=== PATIENT | male | born 1945 | race Caucasian/White ===

== ENCOUNTER → 2017-11-30 | Outpatient (CLI) | payer MEDICARE, OTHER ==
[~2017-11-30] MED LIST: ASPIR 8181 M1 PO; COLACE100 MG PO; COUMADIN 5 MG TA5 M1 PO; ENOXAPARIN40 MG/0.1 SUBQ; ENOXAPARIN80 MG/0.1 SUBQ; FLOMAX0.4 MG PO; FOLIC ACID1 MG PO; GABAPENTIN 100100 MG PO; IRON325 PO; KEFLEX500 MG PO; MACROBID 100 M100 M2 PO; MACRODANTIN100 MG PO; METHOTREXATE 22.5 MG; METHOTREXATE 22.5 MG SUBQ; METHOTREXATE SUBQ; MILK OF MA2400 MG/10 PO; MIRALAX17 GM PO; OXYCODONE HCL 55 MG PO; OXYCODONE HCL5 M1 PO; PREDNISONE 10 M10 MG PO; PROSCAR 5MG TABL5 MG PO; TRAMADOL 50 MG50 MG PO; VITAMINC500 PO; XANAX 0.5 MG0.5 MG PO; XARELTO10 MG PO
== END ==
LOC: M.MRI 15:21
DX: M48.061 Spinal stenosis, lumbar region without neurogenic claudication (principal); M54.16 Radiculopathy, lumbar region; M51.27 Other intervertebral disc displacement, lumbosacral region; M47.896 Other spondylosis, lumbar region; N32.89 Other specified disorders of bladder; N40.1 Benign prostatic hyperplasia with lower urinary tract symptoms

== ENCOUNTER → 2018-01-05 | Outpatient (CLI) | payer MEDICARE, OTHER | LOC: M.RAD 12:58 | DX: R09.89 Other specified symptoms and signs involving the circulatory and respiratory systems (principal); N40.0 Benign prostatic hyperplasia without lower urinary tract symptoms ==

== ENCOUNTER → 2018-04-13 | Outpatient (CLI) | payer MEDICARE, OTHER | LOC: M.MRI 13:41 | DX: M48.02 Spinal stenosis, cervical region (principal); M50.323 Other cervical disc degeneration at C6-C7 level; M12.88 Other specific arthropathies, not elsewhere classified, other specified site; M25.78 Osteophyte, vertebrae; G95.9 Disease of spinal cord, unspecified ==

== ENCOUNTER → 2019-01-02 | Outpatient (CLI) | payer MEDICARE, OTHER | LOC: M.RAD 10:14 | DX: R05 Cough (principal); R07.9 Chest pain, unspecified ==

== ENCOUNTER 2019-01-25 18:25 | Inpatient (IN) | payer MEDICARE, OTHER ==
[~2019-01-25] VITALS: Ht 177.8 cm; Wt 81.6 kg
[~2019-01-25 18:25] MED LIST changes: -XARELTO15 MG PO
[2019-01-25 18:32] VITALS: BP 136/67
[2019-01-25] MEDS ORDERED: PROSCAR 5MG TABL5 MG PO (18:38)
[2019-01-25 19:07] LABS: ABSOLUTE BASOPHILS 0.2 thou/uL (0.0-0.2); ABSOLUTE EOSINOPHILS 0.2 thou/uL (0.0-0.7); ABSOLUTE LYMPHOCYTES 2.2 thou/uL (0.8-5.3); ABSOLUTE MONOCYTES 0.5 thou/uL (0.0-1.2); ABSOLUTE NEUTROPHILS 4.6 thou/uL (1.6-8.1); EOSINOPHILS 2.6 %; HEMATOCRIT 39.7 % (42.0-52.0); HEMOGLOBIN 13.2 gm/dL (14.0-18.0); LYMPHOCYTES 28.6 %; MCH 33.5 pg (26.0-34.0); MCHC 33.4 g/dL (28.0-37.0); MCV 100.5 fL (80.0-100.0); MONOCYTES 6.3 %; MPV 8.4 fl. (7.2-11.1); NUCLEATED RBCS 0 /100WBC; PLATELET COUNT* 267 thou/uL (150-400); POLYS 60.5 %; RBC 3.95 mil/uL (4.50-6.00); RDW-CV 14.3 % (10.5-14.5); WBC 7.7 thou/uL (4.0-11.0)
[2019-01-25 19:12] LABS: PROTIME 10.4 Seconds (9.20-11.50)
[2019-01-25 19:29] LABS: ALBUMIN 3.6 g/dL (3.4-5.0); CALCIUM 8.7 mg/dL (8.5-10.1); CREATININE 1.4 mg/dL (0.6-1.3); POTASSIUM 4.2 mmol/L (3.5-5.1); TOTAL BILIRUBIN 0.5 mg/dL (<0.1-1.0)
[2019-01-25 22:44] VITALS: BP 149/77
[2019-01-25 22:45] VITALS: BP 134/71
--- NOTE | 2019-01-25 22:45 | NUR ---
PT ADMITTED TO FLOOR PER CART ACCOMPANIED BY ER STAFF AND WITH BELONGINGS. ORIENTED TO ROOM AND CALL LITE. HISTORY OBTAINED AND ASSESSMENT PERFORMED, SEE ADMIT NOTED. PT DENIES PAIN OR PROBLEMS. MORE CROSS. AT BEDSIDE, STAYING THE NIGHT. ABLE TO USE CALL LITE AND MAKE NEEDS KNOWN. WILL CONTINUE TO MONITOR AND PROVIDE CARES NEEDED.
[2019-01-26 03:53] VITALS: BP 121/65
--- NOTE | 2019-01-26 05:47 | NUR ---
NEW ADMISSION THIS SHIFT. HAS DENIED PAIN OR PROBLEMS. SLEPT WELL WITH AT BEDSIDE. UP TO BR TO VOID OVERNIGHT. MORE CROSS. ABLE TO USE CALL LITE AND MAKE NEEDS KNOWN. RECEIVED LOVENOX IN ER. NO LABS THIS MORNING.
[2019-01-26 07:30] VITALS: BP 117/70
[2019-01-26 12:00] VITALS: BP 143/74
--- NOTE | 2019-01-26 15:05 | EKG ---
[place] [address] ELECTROCARDIOGRAM REPORT Name: BRIAN LOTT Room: [address] ADM IN M.R.#: [id number] Admission: 01/25/19 Attend Phys: Roger Lowry MD Discharge: Date of : 41 Report #: [id number] THIS REPORT FOR: //name// [facility] ED Test Date: 2019-01-25 Test Time: 18:59:53 Pat Name: BRIAN LOTT Department: Room: [facility] Gender: M Report Analyst: Jeremy REEDER : 1945 Requested By: Virginia Kruse Order Number: [id number] MD: Glen Dutton Measurements Intervals [place] Rate: 83 P: 64 GA: 189 QRS: -85 QRSD: 101 T: 27 QT: 368 QTc: 433 Interpretive Statements Sinus rhythm LAD, consider left anterior fascicular block Abnormal R-wave progression, late transition Minimal ST elevation, lateral leads Compared to ECG 12/19/2016 11:26:15 ST (T wave) deviation now present Electronically Signed On 01-26-2019 15:04:57 CDT by Glen Dutton [email or web address] <ELECTRONICALLY SIGNED> By: Glen Dutton MD, FACC 01/26/19 1504 58 58 Glen Dutton MD, FACC /EPI
--- NOTE | 2019-01-26 15:06 | NUR ---
SW met with pt and pt . Pt alert, oriented, pleasant. Pt lives at home with his . Pt has hx of [facility] HH services. Pt and pt had questions and concerns regarding blood thinner medication options and they knew they wanted pt to change from Lovenox but didn't really want to change to Coumadin only they were worried about cost of Eliquis or Xaralto. SW discussed Rx assistance plans. SW discussed with nurse who plans to update Dr Jaimes about pt preferences to be able to try either Eliquis or Xaralto. Pt [facility] in [place] [phone]. SW to continue to follow to assist with safe dc planning.
--- NOTE | 2019-01-26 15:36 | 2DMMODE ---
[place] [address] 2 D/M-MODE ECHOCARDIOGRAM Name: BRIAN LOTT Room: [address] IN [facility]#: [id number] Admission: 01/25/19 Attend Phys: Roger Lowry MD Discharge: Date of : 41 Date of Service: 01/26/19 1535 Report #: [id number] THIS REPORT FOR: //name// APPROVED REPORT Study performed: 01/26/2019 13:40:33 EXAM: Comprehensive 2D, Doppler, and color-flow Echocardiogram Patient Location: In-Patient Room #: [facility] Status: routine BSA: 2.00 HR: 79 bpm BP: 143/74 mmHg Rhythm: NSR Other Information Study Quality: Good Indications Pulmonary Embolism Dyspnea 2D Dimensions IVSd: 11.84 (7-11mm) LVOT Diam: 21.69 (18-24mm) LVDd: 38.45 mm PWd: 11.79 (7-11mm) Ascending Ao: 29.46 (22-36mm) LVDs: 23.36 (25-40mm) Aortic Root: 33.27 mm Volumes Left Atrial Volume (Systole) LA ESV Index: 27.10 mL/m2 Aortic Valve AoV Peak Quoc.: 1.57 m/s AO Peak Gr.: 9.87 mmHg LVOT Max P.01 mmHg AO Mean Gr.: 5.03 mmHg LVOT Mean P.39 mmHg LVOT Max V: 1.50 m/s AO V2 VTI: 25.47 cm LVOT Mean V: 0.96 m/s JANAK (VTI): 3.20 cm2 LVOT V1 VTI: 22.09 cm Mitral Valve E/A Ratio: 0.97 MV Decel. Time: 248.63 [place] [address] 2 D/M-MODE ECHOCARDIOGRAM Name: BRIAN LOTT Room: [address] IN [facility].#: [id number] Admission: 01/25/19 Attend Phys: Roger Lowry MD Discharge: Date of : 41 Date of Service: 01/26/19 1535 Report #: [id number] E Max Quoc.: 0.76 m/s MV PHT: 72.10 ms MVA (PHT): 3.05 cm2 TDI E/Lateral E': 7.60 E/Medial E': 6.91 Medial E' Quoc.: 0.11 m/s Lateral E' Quoc.: 0.10 m/s Pulmonary Valve PV Peak Quoc.: 1.31 m/s PV Peak Gr.: 6.91 mmHg Left Ventricle The left ventricle is normal size. There is normal LV segmental wall motion. Borderline concentric left ventricular hypertrophy. Left ventricular systolic function is normal. The left ventricular ejection fraction is within the normal range. LVEF is 60-65%. The left ventricular diastolic function is normal. Right Ventricle The right ventricle is normal size. The right ventricular systolic function is normal. Atria The left atrium size is normal. The right atrium size is normal. Aortic Valve Mild aortic valve sclerosis. Trace aortic regurgitation. There is no aortic valvular stenosis. Mitral Valve Mild mitral annular calcification. Mitral valve leaflets are mildly thickened. Trace mitral regurgitation. No evidence of mitral valve stenosis. Tricuspid Valve The tricuspid valve is normal in structure. Unable to assess PA pressure. Trace tricuspid regurgitation. Pulmonic Valve The pulmonary valve is normal in structure. There is no pulmonic valvular regurgitation. Great Vessels The aortic root is normal in size. IVC [place] [address] 2 D/M-MODE ECHOCARDIOGRAM Name: BRIAN LOTT Room: [address] IN [facility]#: [id number] Admission: 01/25/19 Attend Phys: Roger Lowry MD Discharge: Date of : 41 Date of Service: 01/26/19 1535 Report #: [id number] collapses >50% with inspiration. Pericardium There is no pericardial effusion. <Conclusion> The left ventricle is normal size. Borderline concentric left ventricular hypertrophy. Left ventricular systolic function is normal. The left ventricular ejection fraction is within the normal range. LVEF is 60-65%. The right ventricle is normal size. The left atrium size is normal. Mild aortic valve sclerosis. Trace aortic regurgitation. There is no aortic valvular stenosis. Mild mitral annular calcification. Mitral valve leaflets are mildly thickened. Trace mitral regurgitation. No evidence of mitral valve stenosis. The tricuspid valve is normal in structure. IVC is normal in size and collapses >50% with inspiration. There is no pericardial effusion. There is normal LV segmental wall motion. <ELECTRONICALLY SIGNED> By: Glen Dutton MD, FACC 01/26/19 1535 1535 1535 Glen Dutton MD, FACC /INF
[2019-01-26 16:00] VITALS: BP 124/75
--- NOTE | 2019-01-26 17:39 | NUR ---
PT A&O X4. PT UP AD JEB PER DR CHEN. PT COMPLAINED OF IV DISCOMFORT, IV DC'D PER DR CHEN. NO NEW IV ACCESS AT THIS TIME. PT RECEIVED LOVENOX IN THE AM. LOVENOX DC'D. BLOOD THINNER CHANGED TO XARELTO BY DR CHEN. PT RECEIVED XARELTO @1700 SCHEDULED. HOME MEDS TALMUSOLIN AND FINISTRIDE ORDERED, PT TO RECIEVE DOSES @ HS. PT WAS SINUS RHYTHM ON THE MONITOR. PT WITH FAMILY THROUGH SHIFT. PT PLEASANT AND APPROPRIATE DURING SHIFT.
[2019-01-26 19:45] VITALS: BP 135/74
[2019-01-27] VITALS: BP 123/68
--- NOTE | 2019-01-27 00:56 | NUR ---
INITlAL ASSESMENT COMPLETED AT 1999. PT LAYING IN BED WATCHING TELEVISION AT THAT TIME. PT GIVENT PRN TORADOL, FENTANYL AND NORCO FOR SURGICAL RELATED PAIN. PT'S O2 SAT, TEMPERATURE , HEART RATE AND BLOOD PRESSURE WITHIN NORMAL LIMITS. PT SLEEPING WITH OU CLOSED SINCE 2129. CALL LIGHT IN REACH, PT DEMONSTRATES PROPER USE.
--- NOTE | 2019-01-27 01:40 | NUR ---
INITAL ASSESMENT COMPLETED AT 194. PT AMBULATING IN HALLS. PT DENIED PAIN OR DISCOMFORT. PT'S O2 SAT 97% ON ROOM AIR. NO CHEST PAIN OR SHORTNESS OF AIR. PT BEING TREATED FOR PULMONARY EMBOLUS IN LEFT LUNG. PT GIVEN HS MEDS PER EMAR. CALL LIGHT IN REACH. PT USING PROPERLY.
[2019-01-27 07:45] VITALS: BP 132/75
[2019-01-27 11:30] VITALS: BP 149/92
[2019-01-27] MEDS ORDERED: XARELTO15 MG PO (12:24)
[2019-01-27 13:17] VITALS: BP 149/92
--- NOTE | 2019-01-27 14:37 | NUR ---
Pt to dc home today with . IVÁN met with pt, pt , and pt son in room and discussed Xarlto Rx program however pt acutally has Medicare Rx [employer] plan after all and the assistance card did not provide the $0 copay with pt's plan. IVÁN called [facility] pharmacy and faxed pt script to pharmacist; SW called and received joseph of $231.82. IVÁN discussed this with pt and pt and they are agreeable to this joseph, they said this is basically their deductible and a little bit more and then they anticipate the cost for the next script to be less expensive: $90 for 3 month supply. No other needs expressed.
--- NOTE | 2019-01-27 15:00 | NUR ---
PATIENT DISCHARGED TO HOME. DISCHARGE PAPERS REVIEWED AND SIGNED. PRESCRIPTION AND INFORMATION SHEETS GIVEN. DOMINGUEZ SET UP WITH CASE MANAGEMENT. NO IV. PATIENT DENIES ANY FURTHER NEEDS. PATIENT TAKEN BY WHEELCHAIR TO EXIT. LEFT WITH SPOUSE AND SON.
== END 2019-01-27 15:00 | disposition home or self-care (01) | DRG 176 ==
LOC: M.ERS 18:25 → M.3W 21:44 → M.TBA-ER 21:44 → M.3W 22:53
PROVIDERS: Nurse Practitioner Family; ADMIT Family Medicine
DX: I26.99 Other pulmonary embolism without acute cor pulmonale (principal); Z96.642 Presence of left artificial hip joint; M06.9 Rheumatoid arthritis, unspecified; N40.0 Benign prostatic hyperplasia without lower urinary tract symptoms; G89.29 Other chronic pain; Z88.6 Allergy status to analgesic agent; Z88.3 Allergy status to other anti-infective agents; Z88.2 Allergy status to sulfonamides; Z88.8 Allergy status to other drugs, medicaments and biological substances; Z82.49 Family history of ischemic heart disease and other diseases of the circulatory system; Z87.891 Personal history of nicotine dependence; Z86.718 Personal history of other venous thrombosis and embolism; Z79.899 Other long term (current) drug therapy; N18.3 Chronic kidney disease, stage 3 (moderate)

== ENCOUNTER → 2019-01-25 | Outpatient (CLI) | payer MEDICARE, OTHER ==
[~2019-01-25] MED LIST changes: +XARELTO15 MG PO
== END ==
LOC: M.LAB 13:40
DX: R06.09 Other forms of dyspnea (principal)

== ENCOUNTER → 2019-02-02 | Outpatient (CLI) | payer MEDICARE, OTHER ==
[~2019-02-02] MED LIST changes: +XARELTO15 MG PO
[2019-02-02 11:00] LABS: ABSOLUTE BASOPHILS 0.1 thou/uL (0.0-0.2); ABSOLUTE EOSINOPHILS 0.1 thou/uL (0.0-0.7); ABSOLUTE LYMPHOCYTES 1.8 thou/uL (0.8-5.3); ABSOLUTE MONOCYTES 0.8 thou/uL (0.0-1.2); ABSOLUTE NEUTROPHILS 4.4 thou/uL (1.6-8.1); BASOPHILS 1.3 %; EOSINOPHILS 1.9 %; HEMATOCRIT 41.6 % (42.0-52.0); HEMOGLOBIN 13.8 gm/dL (14.0-18.0); LYMPHOCYTES 25.1 %; MCH 33.6 pg (26.0-34.0); MCHC 33.2 g/dL (28.0-37.0); MPV 8.5 fl. (7.2-11.1); NUCLEATED RBCS 0 /100WBC; PLATELET COUNT* 246 thou/uL (150-400); POLYS 60.7 %; RBC 4.12 mil/uL (4.50-6.00); RDW-CV 14.7 % (10.5-14.5); WBC 7.2 thou/uL (4.0-11.0)
[2019-02-02 11:10] LABS: ALBUMIN 3.5 g/dL (3.4-5.0); DIRECT BILIRUBIN 0.1 mg/dL (<0.1-0.3); TOTAL BILIRUBIN 0.3 mg/dL (<0.1-1.0); TOTAL PROTEIN 7.3 g/dL (6.4-8.2)
== END ==
LOC: M.LAB 10:33
PROVIDERS: Internal Medicine Rheumatology
DX: M06.9 Rheumatoid arthritis, unspecified (principal); Z79.899 Other long term (current) drug therapy

== ENCOUNTER → 2019-04-25 | Outpatient (CLI) | payer MEDICARE, OTHER | LOC: M.LAB 12:46 | DX: G95.9 Disease of spinal cord, unspecified (principal) ==

== ENCOUNTER → 2019-06-05 | Outpatient (CLI) | payer MEDICARE, OTHER | LOC: M.LAB 12:30 → M.MRI 13:30 | DX: I67.82 Cerebral ischemia (principal); R90.82 White matter disease, unspecified; R25.9 Unspecified abnormal involuntary movements ==

== ENCOUNTER 2021-06-28 10:36 | Inpatient (IN) | payer MEDICARE, OTHER ==
[~2021-06-28] VITALS: Ht 182.9 cm; Wt 91.6 kg
[2021-06-28 10:42] VITALS: BP 168/84
[2021-06-28 11:08] LABS: ABSOLUTE BASOPHILS 0.1 thou/uL (0.0-0.2); ABSOLUTE LYMPHOCYTES 1.9 thou/uL (0.8-5.3); ABSOLUTE MONOCYTES 0.8 thou/uL (0.0-1.2); ABSOLUTE NEUTROPHILS 5.4 thou/uL (1.6-8.1); BASOPHILS 1.6 %; EOSINOPHILS 0.6 %; HEMATOCRIT 44.4 % (42.0-52.0); HEMOGLOBIN 14.6 gm/dL (14.0-18.0); LYMPHOCYTES 23.6 %; MCH 32.3 pg (26.0-34.0); MCHC 32.9 g/dL (28.0-37.0); MCV 98.1 fL (80.0-100.0); MONOCYTES 9.1 %; MPV 8.2 fl. (7.2-11.1); NUCLEATED RBCS 0 /100WBC; PLATELET COUNT* 208 thou/uL (150-400); POLYS 65.1 %; RBC 4.52 mil/uL (4.50-6.00); WBC 8.3 thou/uL (4.0-11.0)
[2021-06-28] MEDS ORDERED: WARFARIN SODIUM2 MG PO (11:17)
[2021-06-28] MEDS ORDERED: WARFARIN SODIUM4 MG PO ×2 (11:17→14:51)
[2021-06-28 11:18] LABS: CALCIUM 8.5 mg/dL (8.5-10.1); CREATININE 1.2 mg/dL (0.6-1.3); POTASSIUM 4.5 mmol/L (3.5-5.1)
[2021-06-28] MEDS ORDERED: PROSCAR 5MG TABL5 M1 PO (11:18)
[2021-06-28] MEDS ORDERED: PLAQUENIL200 MG PO (11:18)
[2021-06-28] MEDS ORDERED: NEURONTIN100 MG PO (11:18)
[2021-06-28] MEDS ORDERED: D3-200050 MCG PO (11:19)
[2021-06-28] MEDS ORDERED: RED YEAST RICE600 MG PO (11:19)
[2021-06-28 11:20] LABS: INR 2.4; PROTIME 24.4 Seconds (9.20-11.50)
[2021-06-28] MEDS ORDERED: CALCIUM WITH D PO (11:21)
[2021-06-28 11:22] LABS: ALBUMIN 3.6 g/dL (3.4-5.0); TOTAL BILIRUBIN 0.5 mg/dL (<0.1-1.0)
[2021-06-28 17:23] VITALS: BP 151/72
[2021-06-28 18:12] VITALS: BP 142/80
--- NOTE | 2021-06-28 18:17 | NUR ---
PT ADMITTED WITH RIGHT FEMUR FRACTURE. PT ORIENTED TO ROOM. FAMILY AT BEDSIDE. FALL RISK PRECAUTIONS IN PLACE. PAIN MEDS GIVEN ORDERED. CALL LIGHT WITHIN REACH.
--- NOTE | 2021-06-28 18:52 | NUR ---
PT GIVEN PAIN MEDS AND MUSCLE RELAXER TO TRY AND HELP PTS PAIN. SLEEP MEDS ORDERED TO HELP PATIENT SLEEP TONIGHT. SON AT BEDSIDE. FALL RISK PRECAUTIONS IN PLACE. HOURLY ROUNDING COMPLETED. CALL LIGHT WITHIN REACH.
[2021-06-28 20:50] LABS: INR 2.4; PROTIME 24.3 Seconds (9.20-11.50)
[2021-06-29 03:38] VITALS: BP 113/65
[2021-06-29 04:11] LABS: HEMATOCRIT 41.2 % (42.0-52.0); HEMOGLOBIN 13.6 gm/dL (14.0-18.0); MCH 32.2 pg (26.0-34.0); MCHC 33.1 g/dL (28.0-37.0); MCV 97.2 fL (80.0-100.0); MPV 8.5 fl. (7.2-11.1); RBC 4.24 mil/uL (4.50-6.00); RDW-CV 14.2 % (10.5-14.5)
[2021-06-29 04:33] LABS: ALBUMIN 3.1 g/dL (3.4-5.0); CALCIUM 7.8 mg/dL (8.5-10.1); MAGNESIUM 1.9 mg/dL (1.8-2.4); POTASSIUM 3.9 mmol/L (3.5-5.1); TOTAL BILIRUBIN 0.7 mg/dL (<0.1-1.0); TOTAL PROTEIN 6.3 g/dL (6.4-8.2)
[2021-06-29 04:58] VITALS: BP 125/72
[2021-06-29 07:55] VITALS: BP 130/80
--- NOTE | 2021-06-29 08:46 | NUR ---
PATIENT HAS BEEN RESTLESS OFF AND ON DURING THE NIGHT. VSS ON 2L VIA NASAL CANNULA. PATIENT HAS C/O OF PAIN IN RIGHT HIP D/T FRACTURED HIP AND HAS BEEN REFUSING TO BE TURNED. MEDICATIONS GIVEN ORDERED AND CHARTED. PATIENT HAS REMAINED BEDREST DURING THE NIGHT. IV IN RIGHT FOREARM-SL. MCLAUGHLIN TO DEPENDENT DRAINAGE WITH YELLOW URINE OUTPUT. PATIENT HAS REMAINED NPO SINCE MIDNIGHT. PATIENT INSTRUCTED TO USE CALL LIGHT WHEN NEEDING ASSISTANCE. HOURLY ROUNDS MADE. WILL CONTINUE WITH PLAN OF CARE AND NURSING TO MONITOR.
[2021-06-29 10:33] LABS: INR 2.1; PROTIME 21.8 Seconds (9.20-11.50)
[2021-06-29 14:10] VITALS: BP 101/51
--- NOTE | 2021-06-29 15:22 | EKG ---
[place] [address] ELECTROCARDIOGRAM REPORT Name: BRIAN LOTT [facility] M.R[facility]#: [id number] Admission: 06/28/21 Attend Phys: Regina Carrington, Discharge: Date of : 41 Date of Service: 06/28/21 1107 Report #: [id number] THIS REPORT FOR: //name// [facility] ED Test Date: 2021-06-28 Test Time: 11:07:59 Pat Name: BRIAN LOTT Department: Room: [facility] Gender: M Adult Specialist: TIFFANY : 1945 Requested By: Clyde Lundy Order Number: [id number] MD: Burke Callahan Measurements Intervals [place] Rate: 79 P: 73 SC: 194 QRS: 260 QRSD: 98 T: 27 QT: 409 QTc: 469 Interpretive Statements Sinus rhythm Probable left atrial enlargement Left anterior fascicular block Borderline low voltage, extremity leads Probable RVH w/ secondary repol abnormality Compared to ECG 01/25/2019 18:59:53 ST (T wave) deviation no longer present Electronically Signed On 06-29-2021 15:22:21 CDT by Burke Callahan [email or web address] <ELECTRONICALLY SIGNED> By: Burke Callahan MD, [facility] 06/29/21 1522 1107 1107 Burke Callahan MD, [facility] /EPI
[2021-06-29 16:00] LABS: INR 1.5
[2021-06-29 16:15] VITALS: BP 118/59
[2021-06-29 20:00] VITALS: BP 104/55
[2021-06-30 03:19] VITALS: BP 119/55
[2021-06-30 08:00] VITALS: BP 97/55
[2021-06-30 11:30] VITALS: BP 91/54
--- NOTE | 2021-06-30 15:02 | NUR ---
ILANA SPK WITH PT AND HIS POONAM AT BEDSIDE. PT LIVES HOME WITH AND SON. SON IS VERY HELPFUL AROUND THE HOUSE. PT IS INDEPENDENT WITH CARES. PT DRIVES. PT HAS HX WITH [facility]. PT WILLING TO GO TO ARU. ARU CONSULT PLACED. PER POONAM, "DEFINITE FAMILY NO TO SKILLED." PT ADAMANTLY INDICATED HE WILL NOT GO TO SNF. OT EVAL NEEDED.
--- NOTE | 2021-06-30 15:08 | NUR ---
I AM IN AGREEMENT WITH DOCUMENTATION BY OMI CLARK. JENNIE BHAKTA, JONATHANT
[2021-06-30 16:00] VITALS: BP 94/50
[2021-06-30 19:50] VITALS: BP 91/50
[2021-07-01] VITALS (48 sets, daily range): BP systolic 55–156; BP diastolic 38–90
[2021-07-01 05:01] LABS: HEMATOCRIT 26.1 % (42.0-52.0); HEMOGLOBIN 8.5 gm/dL (14.0-18.0); MCH 32.1 pg (26.0-34.0); MCHC 32.5 g/dL (28.0-37.0); MCV 98.5 fL (80.0-100.0); MPV 8.6 fl. (7.2-11.1); RBC 2.65 mil/uL (4.50-6.00); RDW-CV 13.8 % (10.5-14.5); WBC 18.2 thou/uL (4.0-11.0)
[2021-07-01 05:18] LABS: ALBUMIN 2.4 g/dL (3.4-5.0); POTASSIUM 4.9 mmol/L (3.5-5.1); TOTAL BILIRUBIN 0.5 mg/dL (<0.1-1.0); TOTAL PROTEIN 5.6 g/dL (6.4-8.2)
[2021-07-01 05:19] LABS: PROTIME 11.1 Seconds (9.20-11.50)
[2021-07-01 05:21] LABS: CREATININE 3.4 mg/dL (0.6-1.3)
--- NOTE | 2021-07-01 08:47 | NUR ---
PT SLEPT MOST OF SHIFT. ASSESSMENT DOCUMNETED. MEDS GIVEN PER E-MAR. IV PATENT. PAIN MEDS GIVEN PER E-MAR WITH RELIEF. NOTIFIED OF LOW URINE OUTPUT, ORDERS RECIEVED. BOLUS GIVEN. PT SCREENED POSITIVE FOR SEVERE SEPSIS, DR NOTIFIED. ORDERS RECIEVED. MCLAUGHLIN IN PLACE TO DEPENDANT DRAINAGE. PT ABLE TO MAKE NEEDS KNOWN. WILL CONTINUE WITH PLAN OF CARE.
[2021-07-01 11:41] LABS: HEMATOCRIT 20.8 % (42.0-52.0); MCH 32.3 pg (26.0-34.0); MCHC 30.3 g/dL (28.0-37.0); MPV 9.5 fl. (7.2-11.1); NUCLEATED RBCS 0 /100WBC; PLATELET COUNT* 147 thou/uL (150-400); RBC 1.95 mil/uL (4.50-6.00); RDW-CV 14.6 % (10.5-14.5); WBC 18.1 thou/uL (4.0-11.0)
[2021-07-01 11:44] LABS: MCV 106.7 fL (80.0-100.0)
[2021-07-01 11:45] LABS: HEMOGLOBIN 6.3 gm/dL (14.0-18.0)
[2021-07-01 11:47] LABS: CREATININE 3.6 mg/dL (0.6-1.3); POTASSIUM 5.4 mmol/L (3.5-5.1)
[2021-07-01 11:52] LABS: ALBUMIN 1.8 g/dL (3.4-5.0); TOTAL BILIRUBIN 0.3 mg/dL (<0.1-1.0); TOTAL PROTEIN 3.8 g/dL (6.4-8.2)
[2021-07-01 12:03] LABS: CALCIUM 5.8 mg/dL (8.5-10.1)
[2021-07-01 12:11] LABS: ABSOLUTE EOSINOPHILS 0.2 thou/uL (0.0-0.7); ABSOLUTE LYMPHOCYTES 6.3 thou/uL (0.8-5.3); ABSOLUTE MONOCYTES 1.6 thou/uL (0.0-1.2); PLATELET ESTIMATE ADEQUATE
[2021-07-01 13:28] LABS: BE -15.2 mmol/L (-2 to +3); PCO2 25.9 mmHg (35.0-45.0)
[2021-07-01 13:36] LABS: PO2 242.9 mmHg (75.0-100.0); pH 7.239 (7.340-7.450)
[2021-07-01 14:05] LABS: ABSOLUTE LYMPHOCYTES 1.3 thou/uL (0.8-5.3); ABSOLUTE MONOCYTES 1.7 thou/uL (0.0-1.2); ABSOLUTE NEUTROPHILS 17.6 thou/uL (1.6-8.1); BASOPHILS 0.2 %; LYMPHOCYTES 6.4 %; MCH 31.9 pg (26.0-34.0); MCHC 32.2 g/dL (28.0-37.0); MONOCYTES 8.2 %; MPV 8.9 fl. (7.2-11.1); NUCLEATED RBCS 0 /100WBC; PLATELET COUNT* 127 thou/uL (150-400); POLYS 85.2 %; RBC 1.72 mil/uL (4.50-6.00); RDW-CV 14.1 % (10.5-14.5); WBC 20.7 thou/uL (4.0-11.0)
[2021-07-01 14:06] LABS: MCV 99.2 fL (80.0-100.0)
[2021-07-01 14:07] LABS: HEMATOCRIT 17.1 % (42.0-52.0); HEMOGLOBIN 5.5 gm/dL (14.0-18.0)
[2021-07-01 14:21] LABS: APTT 36.8 Seconds (25.0-31.3); INR 1.2; PROTIME 12.6 Seconds (9.20-11.50)
--- NOTE | 2021-07-01 14:51 | CON ---
[address] [address] CONSULTATION Name: BRIAN LOTT Room: [address] IN M.R.#: [id number] Admission: 06/28/21 Attend Phys: Regina Carrington MD Discharge: Date of : 41 Report #: [id number] THIS REPORT FOR: cc: Franklin See MD, Arthur MD Pervez, Adeel MD ~ DATE OF CONSULTATION: 07/01/2021 CONSULTATION REQUESTED BY: Wilbert Quevedo MD INDICATION FOR CONSULTATION: Acute hypoxemic respiratory failure following cardiac arrest. HISTORY OF PRESENT ILLNESS: A 75-year-old gentleman who has an extensive history of smoking According to the records, the patient, however, does not carry a diagnosis of COPD. He is long-term anticoagulated with Coumadin, has had a DVT and PE postoperatively in the past. At this time, the patient is admitted with a right femoral neck fracture, displaced and has had a surgery for this. He has therapeutic INRs until the , which was reversed with vitamin K. INR is now 1.0. However, yesterday, the patient was on IV heparin with a PTT in the range of 106-139. So he was having adequate anticoagulation. Until this morning, the patient was on 2 liters nasal cannula. He suddenly collapsed while having physical therapy, went into cardiac arrest, received multiple amps of epinephrine and subsequently was brought to the ICU. Currently, the patient is having a heart rate of around 140. He does have high dose dopamine as well as norepinephrine running. He is waking up of sedation, currently is only on Precedex. He does not have any palpable radial pulses and I am not able to get a blood pressure in his arms. There are pulses present in the femoral region. The patient is on the ventilator and therefore is unable to provide a further history or review of systems. PAST MEDICAL HISTORY: Postoperative DVT and PE in the past, on long-term anticoagulation, rheumatoid arthritis, on hydroxychloroquine long-term, benign prostatic hypertrophy, left knee surgery, left hip surgery. The patient's last available echocardiogram from 2019 and shows a normal left ventricular ejection fraction at 60-65% with a pulmonary artery systolic also normal as tricuspid valve is normal. SOCIAL HISTORY: Previous history of smoking, unable to quantify, not a smoker now. No known history of heavy alcohol use or illegal drug use. CURRENT MEDICATIONS: [place] [address] CONSULTATION Name: BRIAN LOTT Room: [address]#: [id number] Admission: 06/28/21 Attend Phys: Regina Carrington MD Discharge: Date of : 41 Report #: [id number] HOME MEDICATIONS: List in [employer] reviewed. FAMILY HISTORY: No pertinent family history. ALLERGIES: SULFONAMIDE ANTIBIOTICS AND STATINS, HAS HAD AN ADVERSE REACTION TO VICODIN WELL AND HAS A RASH WITH CIPRO. PHYSICAL EXAMINATION: GENERAL: He is opening eyes to verbal commands. VITAL SIGNS: There is no recordable blood pressure. He has femoral pulses, on a Precedex drip, high dose dopamine and norepinephrine. High dose dopamine at 20, norepinephrine 10. Heart rate 140, afebrile with a temperature of 36.4. No recordable O2 saturation. Assist control mode of ventilation, 100% FiO2, 5 of PEEP. He is overbreathing the set rate on the ventilator, tidal volume is set at 600. HEENT: Head is normocephalic and atraumatic. Endotracheal tube is in good position. NECK: Does not show raised JVP, asymmetry, mass or lymph nodes. CHEST: Symmetrical expansion on inspection and palpation. On auscultation, breath sounds are bilaterally equal. I do not hear any added sounds. HEART: Regular, significant tachycardia. ABDOMEN: Distended. No obvious tenderness. EXTREMITIES: Lower extremities show no edema. They are cold and clammy. There is evidence of surgery on the right side. NEUROLOGIC: Limited. LABORATORY DATA: The patient just had a chest x-ray performed and it does not show any increase in pulmonary vascular congestion. There are distended loops of bowel noted in the abdomen. Lab work shows a drop in hemoglobin from 13.6 on the nd to 8.5 yesterday and now 6.3. Chemistries are pending, but his creatinine had increased from 1.0-3.4 this morning. ASSESSMENT AND PLAN: 1. Acute hypoxemic respiratory failure, status post cardiac arrest. At first glance, it appears that the patient has a hemorrhagic source of his decompensation, likely was intravascularly fluid depleted and vasovagal episode leading to cardiac arrest. At this time, we will keep current ventilator settings. We will get a central line and A line and then reassess. Continue Precedex, start fentanyl drip, p.r.n. Versed for now. We will also do an ABG. 2. Acute blood loss anemia/hemorrhagic shock. Agree with packed RBCs. We will also continue with fluid resuscitation, likely we are not getting O2 saturation because he is vasoconstricted. Recommend tapering off dopamine, will start phenylephrine. We will continue with norepinephrine. We will watch heart rate [facility] [address] [place] [address] CONSULTATION Name: BRIAN LOTT Room: [address] IN ..#: [id number] Admission: 06/28/21 Attend Phys: Regina Carrington MD Discharge: Date of : 41 Report #: [id number]. 3. Possible sepsis. Agree with Zosyn. We will do cultures as well. 4. Abdominal distention/distended loops of small bowel on the chest x-ray. We will obtain an x-ray of the abdomen. If he stabilizes enough, may consider CT of the abdomen and pelvis. The findings are new compared with the x-ray performed on 06/28. 5. Past history of deep venous thrombosis and pulmonary emboli. For now, I favor holding off on anticoagulation once he is stabilized. We will plan to start later, but I would go ahead and do an echocardiogram. We will also do venous Dopplers and verify that there are no findings consistent with thromboembolism. 6. History of smoking. I would give him one dose of Solu-Medrol now. He is markedly tachycardic and therefore, I did not start nebulized bronchodilators for now. Once heart rate is under control, we will plan to start these later. 7. Gastrointestinal prophylaxis, Protonix. 8. History of rheumatoid arthritis, on Plaquenil long-term. Has also used methotrexate in the past. The patient is critically ill at this time. Total time spent providing critical care to this patient today exceeds 41 minutes. <ELECTRONICALLY SIGNED> By: Chance Mora MD 07/01/21 1451 1105 [id number] luis Odom
--- NOTE | 2021-07-01 15:54 | EKG ---
[place] [address] ELECTROCARDIOGRAM REPORT Name: BRIAN LOTT Room: [address] ADM IN M.R.#: [id number] Admission: 06/28/21 Attend Phys: Regina Carrington, Discharge: Date of : 41 Date of Service: 07/01/21 1018 Report #: [id number] THIS REPORT FOR: //name// [facility] Test Date: 2021-07-01 Test Time: 10:18:52 Pat Name: BRIAN LOTT Department: Room: [facility] Gender: M [employer]icated Local Truck Driver: JG : 1945 Requested By: Wilbert Quevedo Order Number: [id number] Avani MD: Glen Dutton Measurements Intervals [place] Rate: 143 P: FL: QRS: 120 QRSD: 118 T: 8 QT: 362 QTc: 559 Interpretive Statements Rhythm appears to be atrial flutter with 2 1 AV block RBBB and LPFB Borderline low voltage, extremity leads Consider inferior infarct Compared to ECG 06/28/2021 11:07:59 Atrial flutter is noted with a tachycardic ventricular response Left posterior fascicular block now present Right bundle-branch block persists Small inferior Q's are noted Sinus rhythm no longer present Left anterior fascicular block no longer present Electronically Signed On 07-01-2021 15:53:30 CDT by Glen Dutton [email or web address] <ELECTRONICALLY SIGNED> By: Glen Dutton MD, [facility] 07/01/21 1553 1018 1018 Glen Dutton MD, [facility] /EPI
--- NOTE | 2021-07-01 16:50 | 2DMMODE ---
[place] [address] 2 D/M-MODE ECHOCARDIOGRAM Name: BRIAN LOTT LEIGH ANN Room: [address] IN [facility]#: [id number] Admission: 06/28/21 Attend Phys: Regina Carrington, Discharge: Date of : 41 Date of Service: 07/01/21 1650 Report #: [id number] THIS REPORT FOR: cc: Franklin See MD, Arthur MD Liston, Michael J. MD [facility] ~ APPROVED REPORT Study performed: 07/01/2021 14:57:15 EXAM: Comprehensive 2D, Doppler, and color-flow Echocardiogram Patient Location: In-Patient Room #: 001 Status: routine BSA: 2.01 HR: 105 bpm BP: 119/61 mmHg Rhythm: NSR Other Information Study Quality: Good Indications CARDIAC ARREST, H/O OF PE 2D Dimensions IVSd: 9.66 (7-11mm) LVOT Diam: 21.81 (18-24mm) LVDd: 40.49 mm PWd: 9.62 (7-11mm) Ascending Ao: 30.84 (22-36mm) LVDs: 22.69 (25-40mm) Aortic Root: 34.24 mm Volumes Left Atrial Volume (Systole) LA ESV Index: 18.00 mL/m2 Aortic Valve AoV Peak Quoc.: 1.59 m/s AO Peak Gr.: 10.10 mmHg LVOT Max P.37 mmHg AO Mean Gr.: 4.96 mmHg LVOT Mean P.04 mmHg LVOT Max V: 1.53 m/s AO V2 VTI: 20.47 cm LVOT Mean V: 0.92 m/s JANAK (VTI): 3.77 cm2 LVOT V1 VTI: 20.65 [place] [address] 2 D/M-MODE ECHOCARDIOGRAM Name: BRIAN LOTT Room: [address] IN ..#: [id number] Admission: 06/28/21 Attend Phys: Regina Carrington, Discharge: Date of : 41 Date of Service: 07/01/21 1650 Report #: [id number] Mitral Valve E/A Ratio: 0.67 MV Decel. Time: 194.76 ms MV E Max Quoc.: 0.47 m/s MV PHT: 56.48 ms MVA (PHT): 3.90 cm2 TDI E/Lateral E': 3.62 E/Medial E': 3.62 Medial E' Quoc.: 0.13 m/s Lateral E' Quoc.: 0.13 m/s Pulmonary Valve PV Peak Quoc.: 2.30 m/s PV Peak Gr.: 21.23 mmHg Tricuspid Valve RAP Estimate: 5.00 mmHg TR Peak Gr.: 41.02 mmHg RVSP: 46.00 mmHg PA Pressure: 46.00 mmHg Left Ventricle The left ventricle is normal size. There is normal LV segmental wall motion. There is normal left ventricular wall thickness. Left ventricular systolic function is hyperdynamic. LVEF is 80-85%. Grade I - abnormal relaxation pattern. Right Ventricle The right ventricle is normal size. The right ventricular systolic function is normal. Atria The left atrium size is normal. The right atrium size is normal. Aortic Valve Mild aortic valve sclerosis. Mild aortic regurgitation. There is no aortic valvular stenosis. Mitral Valve The mitral valve is normal in structure. Trace mitral regurgitation. No evidence of mitral valve stenosis. Tricuspid Valve The tricuspid valve is normal in structure. Trace tricuspid regurgitation. The RVSP is 45 [place] [address] 2 D/M-MODE ECHOCARDIOGRAM Name: BRIAN LOTT Room: [address]#: [id number] Admission: 06/28/21 Attend Phys: Regina Carrington, Discharge: Date of : 41 Date of Service: 07/01/21 1650 Report #: [id number] Pulmonic Valve The pulmonary valve is normal in structure. Trace pulmonic regurgitation. Great Vessels The aortic root is normal in size. IVC is normal in size and collapses >50% with inspiration. Pericardium There is no pericardial effusion. <Conclusion> The left ventricle is normal size. There is normal left ventricular wall thickness. Left ventricular systolic function is hyperdynamic. LVEF is 80-85%. Grade I - abnormal relaxation pattern. There is normal LV segmental wall motion. Mild aortic valve sclerosis. Mild aortic regurgitation. Trace mitral regurgitation. Trace tricuspid regurgitation. The RVSP is 45 mmHg. IVC is normal in size and collapses >50% with inspiration. <ELECTRONICALLY SIGNED> By: Burke Callahan MD, FACC 07/01/211649 49 49 Burke Callahan MD, [facility]ACC /INF
[2021-07-01 17:10] LABS: BE -11.7 mmol/L (-2 to +3); PCO2 28.5 mmHg (35.0-45.0); PO2 81.6 mmHg (75.0-100.0)
[2021-07-01 17:13] LABS: pH 7.298 (7.340-7.450)
[2021-07-01 21:18] LABS: ABSOLUTE LYMPHOCYTES 2.3 thou/uL (0.8-5.3); ABSOLUTE MONOCYTES 0.8 thou/uL (0.0-1.2); ABSOLUTE NEUTROPHILS 14.2 thou/uL (1.6-8.1); BASOPHILS 0.1 %; EOSINOPHILS 0.1 %; HEMATOCRIT 27.3 % (42.0-52.0); LYMPHOCYTES 13.2 %; MCHC 33.2 g/dL (28.0-37.0); MONOCYTES 4.8 %; NUCLEATED RBCS 0 /100WBC; PLATELET COUNT* 111 thou/uL (150-400); POLYS 81.8 %; RBC 2.93 mil/uL (4.50-6.00); RDW-CV 15.5 % (10.5-14.5); WBC 17.4 thou/uL (4.0-11.0)
[2021-07-01 21:19] LABS: HEMOGLOBIN 9.1 gm/dL (14.0-18.0); MCV 93.3 fL (80.0-100.0)
[2021-07-01 21:20] LABS: MAGNESIUM 1.6 mg/dL (1.8-2.4)
[2021-07-01 21:25] LABS: POTASSIUM 4.2 mmol/L (3.5-5.1)
--- NOTE | 2021-07-01 21:25 | NUR ---
PT CAME TO ICU POST CODE. CENTRAL LINE, ART LINE PLACED. FENT, PRECEDEX, LEVO, VASOPRESSIN, AND EMMANUEL RUNNING. INFUSED 2 UNITS BLOOD. BICARB DRIP. HIGH FALL RISK PRECAUTIONS IN PLACE. CARDIAC MONITORING IN PLACE.
[2021-07-01 21:29] LABS: CALCIUM 5.1 mg/dL (8.5-10.1)
[2021-07-02] VITALS (62 sets, daily range): BP systolic 74–170; BP diastolic 47–77
[2021-07-02 04:31] LABS: ABSOLUTE LYMPHOCYTES 1.1 thou/uL (0.8-5.3); ABSOLUTE NEUTROPHILS 12.1 thou/uL (1.6-8.1); BASOPHILS 0.3 %; HEMATOCRIT 23.5 % (42.0-52.0); HEMOGLOBIN 7.9 gm/dL (14.0-18.0); LYMPHOCYTES 7.6 %; MCHC 33.5 g/dL (28.0-37.0); MCV 92.4 fL (80.0-100.0); MONOCYTES 7.1 %; NUCLEATED RBCS 0 /100WBC; PLATELET COUNT* 94 thou/uL (150-400); RBC 2.54 mil/uL (4.50-6.00); RDW-CV 15.7 % (10.5-14.5); WBC 14.2 thou/uL (4.0-11.0)
[2021-07-02 04:53] LABS: PREALBUMIN 11.1 mg/dL (18.0-35.7)
[2021-07-02 05:04] LABS: ALBUMIN 2.3 g/dL (3.4-5.0); CREATININE 2.7 mg/dL (0.6-1.3); POTASSIUM 3.8 mmol/L (3.5-5.1); TOTAL BILIRUBIN 0.7 mg/dL (<0.1-1.0); TOTAL PROTEIN 4.5 g/dL (6.4-8.2)
[2021-07-02 05:21] LABS: INR 1.3; PROTIME 13.4 Seconds (9.20-11.50)
[2021-07-02 05:25] LABS: CALCIUM 5.6 mg/dL (8.5-10.1)
[2021-07-02 08:03] LABS: BE 4.5 mmol/L (-2 to +3); PCO2 31.5 mmHg (35.0-45.0); PO2 75.7 mmHg (75.0-100.0)
--- NOTE | 2021-07-02 09:17 | NUR ---
ICU Rounds: Patient coded and transferred to ICU yesterday. Patient was working with PT and collapsed. Patient is currently on a vent (FiO2 40% and peep 8). Continued bicarb gtt, 1 pressor, abx, precedex and fent. CM to check in with family.
[2021-07-02 11:31] LABS: MAGNESIUM 2.2 mg/dL (1.8-2.4); POTASSIUM 4.3 mmol/L (3.5-5.1)
[2021-07-02 11:34] LABS: CALCIUM 9.3 mg/dL (8.5-10.1); CREATININE 1.3 mg/dL (0.6-1.3)
[2021-07-02 14:17] LABS: BE -0.8 mmol/L (-2 to +3); PCO2 30.6 mmHg (35.0-45.0); PO2 73.7 mmHg (75.0-100.0); pH 7.479 (7.340-7.450)
--- NOTE | 2021-07-02 15:51 | NUR ---
WOUND NURSE: PATIENT SEEN AT REQUEST OF NURSECHELO, CARING FOR PATIENT. PATIENT WITH A DRESSING SATURATED WITH BLOOD ON THE RIGHT HIP INCISION. REMOVED DRESSING, CLEANSED GENTLY WITH STERILE SALINE AND GAUZE. APPLIED MEPILEX AG BORDERED FOAM DRESSING. INCISION WITH INTACT SKIN CLOSURES AND EDGES WELL APPROXIMATE. NO ACTIVE BLEEDING NOTED. NO PERIWOUND REDNESS OR WARMTH, SIGNIFICANT ECCHYMOSIS AND EDEMA HOWEVER. ALL BED LINENS WERE CHANGED WHEN DRESSING WAS CHANGED. FOAM IMMOBILIZER WAS PLACED BETWEEN LEGS PRIOR TO TURNING PATIENT. PATIENT INSTRUCTED ON MEASURES TO PROMOTE HEALING AND PREVENT COMPLICATIONS, EG NO CROSSING LEGS, OR INTERNAL OR EXTERNAL ROTATION. PATIENT ANSWERED YES TO INSTRUCTIONS PROVIDED.
[2021-07-03] VITALS (22 sets, daily range): BP systolic 88–141; BP diastolic 53–83
[2021-07-03 05:53] LABS: ABSOLUTE LYMPHOCYTES 1.2 thou/uL (0.8-5.3); ABSOLUTE MONOCYTES 1.4 thou/uL (0.0-1.2); ABSOLUTE NEUTROPHILS 14.4 thou/uL (1.6-8.1); BASOPHILS 0.1 %; HEMATOCRIT 22.7 % (42.0-52.0); HEMOGLOBIN 7.5 gm/dL (14.0-18.0); LYMPHOCYTES 7.2 %; MCH 30.9 pg (26.0-34.0); MCV 93.7 fL (80.0-100.0); MPV 9.4 fl. (7.2-11.1); NUCLEATED RBCS 0 /100WBC; PLATELET COUNT* 92 thou/uL (150-400); POLYS 84.7 %; RBC 2.43 mil/uL (4.50-6.00); RDW-CV 16.2 % (10.5-14.5); WBC 17.1 thou/uL (4.0-11.0)
[2021-07-03 06:05] LABS: ALBUMIN 2.1 g/dL (3.4-5.0); MAGNESIUM 2.1 mg/dL (1.8-2.4); POTASSIUM 3.9 mmol/L (3.5-5.1); TOTAL BILIRUBIN 0.6 mg/dL (<0.1-1.0); TOTAL PROTEIN 4.7 g/dL (6.4-8.2)
[2021-07-03 06:20] LABS: CALCIUM 6.1 mg/dL (8.5-10.1); CREATININE 2.7 mg/dL (0.6-1.3)
[2021-07-03 06:22] LABS: INR 1.3; PROTIME 13.3 Seconds (9.20-11.50)
--- NOTE | 2021-07-03 07:38 | NUR ---
PT PROGRESSING TOWARDS GOALS; PT REMAINING O2 SAT IN HIGH 90'S TITRATED O2 TO NC-HF @ 7L; TITRATED LEVO DOWN PT REMAINING HEMODYNAMICALLY STABLE; PT REPOSITIONS EVERY 2 HOURS; SEE REASSESSMENT FOR FURTHER DETAILS; REPORT PROVIDED TO EDWINA; CALL LIGHT WITHIN REACH WILL CONTINUE TO IMPLEMENT PLAN.
[2021-07-03 08:49] LABS: BE 1.3 mmol/L (-2 to +3); PCO2 28.4 mmHg (35.0-45.0); pH 7.536 (7.340-7.450)
[2021-07-03 08:51] LABS: PO2 57.8 mmHg (75.0-100.0)
--- NOTE | 2021-07-03 11:10 | NUR ---
PT IS 75 Y/O MALE TRANSFERRED TO PACU FOR HOLDING AT THIS TIME. PT IS ALERT AND ORIENTED X 4, REMAINS ON 7L PER HIFLO CANNULA, ON LEVO GTT AT 4 MCG/MIN AT THIS TIME. PT REPORTS PAIN IN HIS RIGHT HIP WHICH IS CONSTANT AND ACHING, HE RATES IT ABOUT A 7/10. DR. TRACEY NOTIFIED. NEW ORDERS RCV'D. GOALS FOR THIS SHIFT: PROMOTE NUTRITION, TITRATE LEVO GTT OFF/TITRATE, AND PAIN MANAGEMENT. PT ORIENTED TO PACU AREA. PRESENT AND UPDATED WELL. ART LINE IN PLACE AND NOTED TO LEFT RADIAL. WILL CONTINUE TO MONITOR PT CLOSELY.
--- NOTE | 2021-07-03 12:10 | NUR ---
LEVO GTT TITRATED DOWN TO 3.5 MCG/MIN. GOAL IS TO KEEP SBP >110 OR MAP > 65. PT UNDERSTANDS PLAN OF CARE. PRESENT. WILL CONTINUE TO MONITOR PT CLOSELY.
--- NOTE | 2021-07-03 13:00 | NUR ---
ICU Rounds: Patient has been extubated and is now on HFNC @ 7L. PT and OT reordered. Rehab planned for discharge. Currently titrating Levo off.
--- NOTE | 2021-07-03 14:35 | NUR ---
PT'S O2 TITRATED DOWN FROM 7L TO 5L, PT DID NOT TOLERATE W/SATS AT 88%, PT TURNED BACK UP TO 7L PER HIFLO. PT RESTING IN BED. WILL CONTINUE TO MONITOR PT CLOSELY.
--- NOTE | 2021-07-03 16:06 | NUR ---
PT HAS TOLERATED SMALL INCREMENTS OF TITRATING LEVOPHED DOWN. PT IS CURRENTLY AT 1MCG/MN. PT HAS BEEN SEEN BY DR. JENSEN AND DR. BEGUM. BREATHING TXS ARE NOW ORDERED. PT HAS RCV'D HIS FIRST DOSE OF MIDODRINE (10 MG), WILL RECEIVE ANOTHER TONIGHT (5 MG). ADEQUATE UOP. SUPPORTIVE AND AT BEDSIDE. TOLERATING TURNS Q 2 HOURS. WILL CONTINUE TO MONITOR PT CLOSELY.
--- NOTE | 2021-07-03 18:09 | NUR ---
OUTCOME SUMMARY: PT PROGRESSING TOWARDS GOALS. OFF LEVO SINCE AROUND 1615 THIS AFTERNOON W/STABLE B/P. PULMONARY STARTED MIDODRINE PO. UNABLE TO TITRATE DOWN OXYGEN THIS AFTERNOON, REMAINS ON 7L PER HIFLO CANNULA. ADEQUATE UOP. CR TRENDING UPWARDS AT 2.7 FROM 1.3 YESTERDAY. USING INCENTIVE SPIROMETER. POOR APPETITE STILL, BUT PT DID EAT 25% OF LUNCH AND SMALL PUDDING CUP THIS EVENING. BREATHING TREATMENTS STARTED BY PULMONARY. GOOD SUPPORT FROM PT'S . PT MAY NEED SOME TYPE OF MEDICATION TO HELP HIM SLEEP, HAS NOT SLEPT AT ALL TODAY AND THIS FRUSTRATES HIM. PT/OT ORDERED. PAIN CONTROLLED W/IV FENTANYL AND PO NORCO. OVERALL PROGNOSIS: FAIR.
--- NOTE | 2021-07-03 20:00 | NUR ---
PT TRANSFERRED TO ROOM 211 VIA BED. REPORT GIVEN TO TATA HARRIS. CALLED PT'S AND UPDATED HER THAT PT TRANSFERRED TO ROOM 211. BED ALARM TURNED ON.
[2021-07-04 00:15] VITALS: BP 112/71
[2021-07-04 04:17] VITALS: BP 140/77
[2021-07-04 06:03] LABS: ABSOLUTE LYMPHOCYTES 1.2 thou/uL (0.8-5.3); ABSOLUTE MONOCYTES 1.5 thou/uL (0.0-1.2); ABSOLUTE NEUTROPHILS 15.6 thou/uL (1.6-8.1); BASOPHILS 0.2 %; HEMATOCRIT 21.9 % (42.0-52.0); HEMOGLOBIN 7.3 gm/dL (14.0-18.0); LYMPHOCYTES 6.5 %; MCH 31.2 pg (26.0-34.0); MCHC 33.3 g/dL (28.0-37.0); MCV 93.6 fL (80.0-100.0); MONOCYTES 8.4 %; NUCLEATED RBCS 0 /100WBC; PLATELET COUNT* 91 thou/uL (150-400); POLYS 84.9 %; RBC 2.34 mil/uL (4.50-6.00); RDW-CV 16.5 % (10.5-14.5); WBC 18.4 thou/uL (4.0-11.0)
[2021-07-04 06:14] LABS: INR 1.1; PROTIME 11.8 Seconds (9.20-11.50)
[2021-07-04 06:21] LABS: ALBUMIN 2.2 g/dL (3.4-5.0); CREATININE 2.2 mg/dL (0.6-1.3); MAGNESIUM 2.3 mg/dL (1.8-2.4); POTASSIUM 3.7 mmol/L (3.5-5.1); TOTAL BILIRUBIN 0.7 mg/dL (<0.1-1.0)
[2021-07-04 06:22] LABS: CALCIUM 5.9 mg/dL (8.5-10.1)
[2021-07-04 08:00] VITALS: BP 110/68
--- NOTE | 2021-07-04 11:09 | NUR ---
I AGREE WITH OMI CLARK'S DOCUMENTATION. JENNIE BHAKTA, JONATHANT
[2021-07-04 12:09] VITALS: BP 118/51
--- NOTE | 2021-07-04 13:54 | NUR ---
WOUND NURSE: DR. ARGUELLO HERE AND AGRESS WITH PLACEMENT OF PROVENA NEG PRESSURE DRESSING. REMOVED SATURATED DRESSING AND REPLACED WITH PROVENA DRESSING. THIS WAS TOLERATED WELL BY THE PATIENT. NO PERIWOUND REDNESS, WARMTH, OR INDURATION. LEG IS EDEMATOUS. EDGES ARE WELL APPROXIMATED AND SUTURES REMAIN INTACT. BOTH SEROUS AND SEROUSANGUINOUS DRAINAGE ON THE OLD DRESSING.
--- NOTE | 2021-07-04 14:26 | NUR ---
Anticipate dc either Wednesday or Wednesday to [facility]. Therapy evals pending. Pt on 7L.
[2021-07-04 16:07] VITALS: BP 122/65
[2021-07-04 20:00] VITALS: BP 129/66
[2021-07-04 22:44] LABS: URINE BILIRUBIN NEGATIVE (Negative); URINE BLOOD 2+ (Negative); URINE CLARITY CLEAR; URINE COLOR YELLOW; URINE GLUCOSE-RANDOM NEGATIVE (Negative); URINE KETONES NEGATIVE (Negative); URINE LEUKOCYTES-REFLEX NEGATIVE (Negative); URINE NITRITE-REFLEX NEGATIVE (Negative); URINE PROTEIN TRACE (Negative); URINE SPECIFIC GRAVITY 1.015 (1.005-1.030); URINE UROBILINOGEN 0.2 E.U./dl (0.2-1.0)
[2021-07-05] VITALS (7 sets, daily range): BP systolic 116–145; BP diastolic 53–85
[2021-07-05 02:05] LABS: CASTS None Seen /LPF (None Seen); SQUAMOUS 0-3 Few /LPF (0-3); URINE WBC-REFLEX 0-5 Rare /HPF (0-5)
[2021-07-05 02:06] LABS: URIC ACID CRYSTALS 0-3 Few /LPF (None Seen); URINE RBC 3-10 Few /HPF (0-2)
[2021-07-05 05:44] LABS: ABSOLUTE BASOPHILS 0.1 thou/uL (0.0-0.2); ABSOLUTE EOSINOPHILS 0.2 thou/uL (0.0-0.7); ABSOLUTE LYMPHOCYTES 2.8 thou/uL (0.8-5.3); ABSOLUTE MONOCYTES 1.7 thou/uL (0.0-1.2); BASOPHILS 0.8 %; EOSINOPHILS 1.2 %; HEMATOCRIT 23.4 % (42.0-52.0); HEMOGLOBIN 7.8 gm/dL (14.0-18.0); LYMPHOCYTES 14.7 %; MCH 31.4 pg (26.0-34.0); MCHC 33.2 g/dL (28.0-37.0); MCV 94.5 fL (80.0-100.0); MONOCYTES 9.1 %; MPV 8.9 fl. (7.2-11.1); NUCLEATED RBCS 1 /100WBC; PLATELET COUNT* 115 thou/uL (150-400); POLYS 74.2 %; RBC 2.47 mil/uL (4.50-6.00); RDW-CV 16.4 % (10.5-14.5); WBC 18.8 thou/uL (4.0-11.0)
[2021-07-05 05:50] LABS: CALCIUM 6.4 mg/dL (8.5-10.1); POTASSIUM 3.6 mmol/L (3.5-5.1)
[2021-07-05 05:53] LABS: INR 1.1; PROTIME 11.9 Seconds (9.20-11.50)
[2021-07-06] VITALS (7 sets, daily range): BP systolic 100–133; BP diastolic 48–66
[2021-07-06 06:02] LABS: ABSOLUTE EOSINOPHILS 0.7 thou/uL (0.0-0.7); ABSOLUTE LYMPHOCYTES 1.4 thou/uL (0.8-5.3); ABSOLUTE MONOCYTES 1.4 thou/uL (0.0-1.2); ABSOLUTE NEUTROPHILS 12.9 thou/uL (1.6-8.1); BASOPHILS 0.2 %; EOSINOPHILS 4.2 %; HEMATOCRIT 21.8 % (42.0-52.0); HEMOGLOBIN 7.2 gm/dL (14.0-18.0); LYMPHOCYTES 8.6 %; MCH 31.3 pg (26.0-34.0); MCHC 32.9 g/dL (28.0-37.0); MCV 95.1 fL (80.0-100.0); MONOCYTES 8.4 %; MPV 8.9 fl. (7.2-11.1); NUCLEATED RBCS 1 /100WBC; PLATELET COUNT* 125 thou/uL (150-400); POLYS 78.6 %; RBC 2.29 mil/uL (4.50-6.00); RDW-CV 16.5 % (10.5-14.5); WBC 16.5 thou/uL (4.0-11.0)
[2021-07-06 06:31] LABS: CALCIUM 6.5 mg/dL (8.5-10.1); CREATININE 1.9 mg/dL (0.6-1.3); MAGNESIUM 2.2 mg/dL (1.8-2.4); POTASSIUM 3.8 mmol/L (3.5-5.1)
[2021-07-06 06:32] LABS: INR 1.3; PROTIME 13.5 Seconds (9.20-11.50)
[2021-07-06 14:01] LABS: HEMATOCRIT 22.9 % (42.0-52.0); HEMOGLOBIN 7.4 gm/dL (14.0-18.0); NUCLEATED RBCS 1 /100WBC
[2021-07-06 14:04] LABS: MCHC 32.5 g/dL (28.0-37.0); MCV 95.4 fL (80.0-100.0); PLATELET COUNT* 142 thou/uL (150-400); RDW-CV 16.8 % (10.5-14.5); WBC 16.9 thou/uL (4.0-11.0)
[2021-07-06 14:07] LABS: BE 1.2 mmol/L (-2 to +3); PCO2 VENOUS 40.1 mmHg (41.0-51.0); PO2 VENOUS 39.4 mmHg (35.0-45.0)
[2021-07-06 14:15] LABS: APTT 31.9 Seconds (25.0-31.3); INR 1.3; PROTIME 13.9 Seconds (9.20-11.50)
[2021-07-06 14:24] LABS: ABSOLUTE EOSINOPHILS 0.7 thou/uL (0.0-0.7); ABSOLUTE MONOCYTES 0.5 thou/uL (0.0-1.2); ABSOLUTE NEUTROPHILS 14.7 thou/uL (1.6-8.1); PLATELET ESTIMATE DECREASED
[2021-07-06 18:27] LABS: CALCIUM 6.9 mg/dL (8.5-10.1); CREATININE 1.9 mg/dL (0.6-1.3); MAGNESIUM 2.3 mg/dL (1.8-2.4); POTASSIUM 4.3 mmol/L (3.5-5.1)
--- NOTE | 2021-07-06 19:02 | NUR ---
notified Dr. Mora of BMP and current vitals as requested
[2021-07-07 01:42] VITALS: BP 131/60
[2021-07-07 03:26] LABS: ABSOLUTE EOSINOPHILS 0.3 thou/uL (0.0-0.7); ABSOLUTE LYMPHOCYTES 1.7 thou/uL (0.8-5.3); ABSOLUTE MONOCYTES 1.1 thou/uL (0.0-1.2); ABSOLUTE NEUTROPHILS 13.3 thou/uL (1.6-8.1); BASOPHILS 0.3 %; EOSINOPHILS 1.9 %; HEMATOCRIT 21.5 % (42.0-52.0); LYMPHOCYTES 10.5 %; MCH 31.2 pg (26.0-34.0); MCHC 32.4 g/dL (28.0-37.0); MONOCYTES 6.7 %; MPV 9.2 fl. (7.2-11.1); NUCLEATED RBCS 0 /100WBC; PLATELET COUNT* 150 thou/uL (150-400); POLYS 80.6 %; RBC 2.24 mil/uL (4.50-6.00); RDW-CV 16.7 % (10.5-14.5); WBC 16.5 thou/uL (4.0-11.0)
[2021-07-07 03:31] LABS: INR 1.5; PROTIME 15.3 Seconds (9.20-11.50)
[2021-07-07 03:34] LABS: ALBUMIN 2.4 g/dL (3.4-5.0); CALCIUM 6.7 mg/dL (8.5-10.1); MAGNESIUM 2.2 mg/dL (1.8-2.4); POTASSIUM 4.2 mmol/L (3.5-5.1); TOTAL BILIRUBIN 1.7 mg/dL (<0.1-1.0); TOTAL PROTEIN 5.3 g/dL (6.4-8.2)
[2021-07-07 06:01] VITALS: BP 128/62
[2021-07-07 09:00] VITALS: BP 126/52
[2021-07-07 12:00] VITALS: BP 138/64
[2021-07-07 14:33] LABS: INR 1.3; PROTIME 13.6 Seconds (9.20-11.50)
[2021-07-07 14:37] LABS: APTT 38.1 Seconds (25.0-31.3)
--- NOTE | 2021-07-07 15:36 | NUR ---
Acutely ill. On bipap 50% fio2. ARU planned at [facility]
[2021-07-07 16:00] VITALS: BP 124/56
[2021-07-07 20:30] VITALS: BP 112/54
[2021-07-08] VITALS (7 sets, daily range): BP systolic 111–148; BP diastolic 39–106
[2021-07-08 05:15] LABS: HEMATOCRIT 22.4 % (42.0-52.0); HEMOGLOBIN 7.2 gm/dL (14.0-18.0)
[2021-07-08 05:26] LABS: INR 1.2; PROTIME 13.1 Seconds (9.20-11.50)
[2021-07-08 05:49] LABS: CALCIUM 6.9 mg/dL (8.5-10.1); CREATININE 2.1 mg/dL (0.6-1.3); POTASSIUM 4.1 mmol/L (3.5-5.1)
[2021-07-08 05:55] LABS: APTT 41.8 Seconds (25.0-31.3)
--- NOTE | 2021-07-08 07:20 | NUR ---
CHANGE OF SHIFT REPORT GIVEN PATIENT SEEN AT BEDSIDE, IN BED ASLEEP ASSUMED PATIENT CARE
--- NOTE | 2021-07-08 16:02 | NUR ---
No dc anticipated at this time. Pt on bipap 55%fio2
--- NOTE | 2021-07-08 16:10 | EKG ---
[place] [address] ELECTROCARDIOGRAM REPORT Name: BRIAN LOTT Room: [address] ADM IN M.R.#: [id number] Admission: 06/28/21 Attend Phys: Regina Carrington, Discharge: Date of : 41 Date of Service: 07/08/21 1535 Report #: [id number] THIS REPORT FOR: //name// [facility] Test Date: 2021-07-08 Test Time: 15:35:58 Pat Name: BRIAN LOTT Department: Room: [address] Gender: M Tool Checker: NAREN : 1945 Requested By: Wilbert Quevedo Order Number: [id number] Reading MD: Ernesto Bergman Measurements Intervals [place] Rate: 86 P: 65 MO: 158 QRS: -70 QRSD: 89 T: 34 QT: 319 QTc: 382 Interpretive Statements Sinus rhythm early transition Left anterior fascicular block Borderline low voltage, extremity leads Compared to ECG 07/01/2021 10:18:52 Left anterior fascicular block now present Atrial flutter no longer present Left posterior fascicular block no longer present Electronically Signed On 07-08-2021 16:09:42 CDT by Ernesto Bergman [email or web address] <ELECTRONICALLY SIGNED> By: Ernesto Bergman MD, [facility] 07/08/21 1609 1535 1535 Ernesto Bergman MD, [facility] /EPI
[2021-07-08 16:36] LABS: ABSOLUTE BASOPHILS 0.1 thou/uL (0.0-0.2); ABSOLUTE LYMPHOCYTES 1.5 thou/uL (0.8-5.3); ABSOLUTE MONOCYTES 1.3 thou/uL (0.0-1.2); ABSOLUTE NEUTROPHILS 14.8 thou/uL (1.6-8.1); BASOPHILS 0.4 %; EOSINOPHILS 0.1 %; HEMATOCRIT 22.5 % (42.0-52.0); HEMOGLOBIN 7.3 gm/dL (14.0-18.0); LYMPHOCYTES 8.7 %; MCH 30.9 pg (26.0-34.0); MCHC 32.5 g/dL (28.0-37.0); MCV 95.2 fL (80.0-100.0); MONOCYTES 7.2 %; NUCLEATED RBCS 0 /100WBC; PLATELET COUNT* 223 thou/uL (150-400); POLYS 83.6 %; RBC 2.36 mil/uL (4.50-6.00); RDW-CV 17.5 % (10.5-14.5); WBC 17.7 thou/uL (4.0-11.0)
[2021-07-08 16:45] LABS: CALCIUM 6.9 mg/dL (8.5-10.1); CREATININE 2.2 mg/dL (0.6-1.3); POTASSIUM 3.9 mmol/L (3.5-5.1)
--- NOTE | 2021-07-08 17:40 | NUR ---
WOUND NURSE: FOLLOWED UP WITH PATIENT AND VERIFIED WOUND VAC IS FUNCTIONING PROPERLY AND WITH MINIMAL CHANGE IN AMOUNT OF SEROUSANGUINOUS DRAINAGE IN [facility]. SPOKE WITH DR. ARGUELLO AND HE PLANS TO COME SEE PATINE TOMORROW.
[2021-07-09] VITALS (7 sets, daily range): BP systolic 115–138; BP diastolic 42–70
[2021-07-09 05:00] LABS: ABSOLUTE LYMPHOCYTES 0.8 thou/uL (0.8-5.3); ABSOLUTE MONOCYTES 0.6 thou/uL (0.0-1.2); ABSOLUTE NEUTROPHILS 13.6 thou/uL (1.6-8.1); BASOPHILS 0.2 %; HEMATOCRIT 20.7 % (42.0-52.0); LYMPHOCYTES 5.3 %; MCHC 32.8 g/dL (28.0-37.0); MCV 94.4 fL (80.0-100.0); MONOCYTES 4.2 %; MPV 9.2 fl. (7.2-11.1); NUCLEATED RBCS 0 /100WBC; PLATELET COUNT* 238 thou/uL (150-400); POLYS 90.3 %; RBC 2.19 mil/uL (4.50-6.00); RDW-CV 16.7 % (10.5-14.5)
[2021-07-09 05:01] LABS: INR 1.2; PROTIME 12.3 Seconds (9.20-11.50)
[2021-07-09 05:09] LABS: CALCIUM 6.9 mg/dL (8.5-10.1); CREATININE 2.3 mg/dL (0.6-1.3); POTASSIUM 4.2 mmol/L (3.5-5.1); TOTAL BILIRUBIN 2.3 mg/dL (<0.1-1.0); TOTAL PROTEIN 6.3 g/dL (6.4-8.2)
[2021-07-09 05:13] LABS: HEMOGLOBIN 6.8 gm/dL (14.0-18.0)
--- NOTE | 2021-07-09 05:19 | NUR ---
DR DANIELSON SENT MESSAGE VIA YOU CALL AT 0518 TO REPORT CRITICAL HGB 6.8 THIS MORNING. LAST TRANSFUSION 07/01/21
--- NOTE | 2021-07-09 05:25 | NUR ---
PT ON BIPAP ALL SHIFT AT 50-55%. SINUS RHYTHM ON MONITOR. ALERT AND ORIENTED. ENCOURAGING HYDRATION WHEN TOLERATED. ARNOLDO HAD 700 MLS OUTPUT THIS MORNING. RECEIVED SOME MEDS, SOME HE REFUSED, HE COULD NOT TOLERATE SWALLING A LARGE AMOUNT OF MEDICATION. BLOOD PRESSURE MEDS GIVEN. FENTANYL GIVEN FOR COMFORT. LABS CRITICAL AT 6.[address] DANIELSON NOTIFIED VIA YOUCALL AT 0520 THIS MORNING. WILL CONTINUE TO MONITOR.
--- NOTE | 2021-07-09 14:04 | NUR ---
Pt remains on bipap 50L, 50% fio2. On iv lasix gtt. ARU following
--- NOTE | 2021-07-09 15:03 | CON ---
[address] [address] CONSULTATION Name: BRIAN LOTT Room: [address] IN M.R.#: [id number] Admission: 06/28/21 Attend Phys: Regina Carrington MD Discharge: Date of : 41 Report #: [id number] THIS REPORT FOR: cc: Franklin See MD,Ernesto Cedeño MD, MD [facility] ~ cc: Franklin See MD DATE OF CONSULTATION: 07/07/2021 CARDIOLOGY CONSULTATION HISTORY OF PRESENT ILLNESS: The patient is a 75-year-old white male who I was asked to see in the hospital today after complained to being short of breath. The patient has no previous history of heart disease. In fact, he apparently had a stress test in the past that showed no evidence of ischemia. He is not very active at this time because of arthritis. However, he denies recent chest pain, shortness of breath, palpitations, syncope, peripheral edema. He apparently tripped on a carpet at home a week ago and broke his right hip. He went to surgery a week ago. After surgery, he was noted to be anemic and required two transfusions of blood. He has been undergoing rehabilitation. He was finally able to sit on the side of the bed. He has had no appetite. Recently, he has been short of breath requiring oxygen. Cardiology consultation requested. He was given IV Lasix. He denies any chest pain, cough, edema, palpitations. PAST MEDICAL HISTORY: He had previous left hip fracture requiring surgery. He has had laser therapy in and his prostate for enlarged prostate. He has a history of hyperlipidemia. No history of hypertension or diabetes. MEDICATIONS: His only medication is tramadol. He cannot tolerate statin drugs in the past, which made his legs were weak. FAMILY HISTORY: Significant for high cholesterol. SOCIAL HISTORY: He is . His live in [place]. He quit smoking years ago, rarely drinks alcohol. REVIEW OF SYSTEMS: No history of stroke, asthma, liver disease, kidney disease, cancer, psychiatric illness, chronic skin condition. PHYSICAL EXAMINATION: GENERAL: Revealed an elderly male, lying in bed with CPAP. VITAL SIGNS: Blood pressure 130/60, pulse is 70, he is afebrile. HEENT: He was anicteric. Conjunctivae pink[place] [address] CONSULTATION Name: BRIAN LOTT Room: [address]#: [id number] Admission: 06/28/21 Attend Phys: Regina Carrington MD Discharge: Date of : 41 Report #: [id number] NECK: Veins does not appear distended. No carotid bruits. CHEST: Clear to auscultation. CARDIAC: Regular rate and rhythm. ABDOMEN: Soft. EXTREMITIES: Had no edema. Dorsalis pedis pulse 1+ bilaterally. SKIN: Cool and dry. NEUROLOGIC: Nonfocal. LABORATORY DATA: His ECG on admission showed a sinus rhythm, left axis, incomplete right bundle branch block. His workup since he has been here at [facility] included an echocardiogram that was done a week ago that showed ejection fraction greater than 65% with aortic sclerosis, mild aortic insufficiency, mild pulmonary hypertension. X-rays when he was admitted a week ago, he had a CT scan of the head since he had fallen that showed no acute abnormality. His chest x-ray on admission showed some atelectasis, otherwise unremarkable. However, his chest x-ray this morning showed bilateral infiltrates, low lung volumes, right hemidiaphragm is elevated. CT scan of the chest using a PE protocol showed evidence of pulmonary edema. He was noted to have coronary artery calcification. His lab work, creatinine 4 days ago was up to 2.7, it is now 2.0, it has been as high as 3.6 in the past. His albumin is 2.4. High sensitivity troponin 32. BNP 4561. His iron saturation 77%. Hemoglobin had dropped to 6.3, it is now 7.0. His COVID antigen stat test was negative. Urinalysis, trace protein, 2+ blood. IMPRESSION AND RECOMMENDATIONS: 1. Diastolic heart failure. Recommend Lasix. 2. Status post hip fracture replacement following a fall that resulted in a hip fracture. 3. Hyperlipidemia. The patient cannot tolerate statin drugs. 4. Prostatism. 5. Arthritis. The patient's activity is limited. 6. Chronic kidney disease. 7. Blood loss anemia. The patient required transfusion. <ELECTRONICALLY SIGNED> By: Ernesto Bergman MD, FACC 07/09/21 1503 1317 [id number] Bergman MD, FACC /nt
[2021-07-09 15:29] LABS: BE 4.4 mmol/L (-2 to +3); PCO2 30.3 mmHg (35.0-45.0); pH 7.561 (7.340-7.450)
--- NOTE | 2021-07-09 16:38 | 2DMMODE ---
[place] [address] 2 D/M-MODE ECHOCARDIOGRAM Name: BRIAN LOTT Room: [address] IN .Kaylan.#: [id number] Admission: 06/28/21 Attend Phys: Regina Carrington, Discharge: Date of : 41 Date of Service: 07/09/21 1638 Report #: [id number] THIS REPORT FOR: cc: Franklin See MD, Arthur MD Blick,Ernesto Olson MD [facility] ~ APPROVED REPORT Study performed: 07/09/2021 16:03:08 EXAM: Limited 2D Echocardiogram Patient Location: In-Patient Room #: [facility] Status: routine BSA: 2.14 HR: 77 bpm BP: 115/42 mmHg Rhythm: NSR Other Information Study Quality: Good Indications Dyspnea REASSESS RIGHT HEART Tricuspid Valve RAP Estimate: 5.00 mmHg TR Peak Gr.: 28.57 mmHg RVSP: 33.00 mmHg PA Pressure: 33.00 mmHg Left Ventricle The left ventricle is normal size. There is normal LV segmental wall motion. There is normal left ventricular wall thickness. The left ventricular systolic function is normal. The left ventricular ejection fraction is within the normal range. LVEF is 65-70%. Right Ventricle The right ventricle is normal size. The right ventricular systolic function is normal. Atria The left atrium size is normal. The right atrium [place] [address] 2 D/M-MODE ECHOCARDIOGRAM Name: BRIAN LOTT Room: [address] IN M.R.#: [id number] Admission: 06/28/21 Attend Phys: Regina Carrington, Discharge: Date of : 41 Date of Service: 07/09/211637 Report #: [id number] Aortic Valve Mild aortic valve sclerosis. Mitral Valve The mitral valve is normal in structure. Tricuspid Valve The tricuspid valve is normal in structure. Trace tricuspid regurgitation. estimated pa pressure 35 mm Hg Pulmonic Valve The pulmonary valve is normal in structure. Great Vessels The aortic root is normal in size. IVC is not well visualized. Pericardium There is no pericardial effusion. <Conclusion> LVEF is 65-70%. Mild aortic valve sclerosis. Trace tricuspid regurgitation. estimated pa pressure 35 mm Hg <ELECTRONICALLY SIGNED> By: Ernesto Bergman MD, FACC 07/09/211637 37 37 Ernesto Bergman MD, FACC /INF
--- NOTE | 2021-07-09 16:50 | NUR ---
WOUND NURSE: WOUND VAC CHECKED THIS MORNING AND FUNCTIONING PROPERLY. DRESSING IS INTACT AND NO ADDITIONAL DRAINAGE IN THE CANNISTER.
[2021-07-09 19:24] LABS: ABSOLUTE BASOPHILS 0.1 thou/uL (0.0-0.2); ABSOLUTE LYMPHOCYTES 1.5 thou/uL (0.8-5.3); ABSOLUTE MONOCYTES 1.2 thou/uL (0.0-1.2); ABSOLUTE NEUTROPHILS 19.5 thou/uL (1.6-8.1); BASOPHILS 0.2 %; LYMPHOCYTES 6.7 %; MCH 30.7 pg (26.0-34.0); MCHC 32.6 g/dL (28.0-37.0); MONOCYTES 5.2 %; MPV 8.9 fl. (7.2-11.1); NUCLEATED RBCS 0 /100WBC; POLYS 87.9 %; RBC 1.67 mil/uL (4.50-6.00); RDW-CV 16.6 % (10.5-14.5); WBC 22.2 thou/uL (4.0-11.0)
[2021-07-09 19:31] LABS: CALCIUM 7.2 mg/dL (8.5-10.1); CREATININE 2.4 mg/dL (0.6-1.3); MAGNESIUM 2.1 mg/dL (1.8-2.4); PLATELET COUNT* 335 thou/uL (150-400); POTASSIUM 3.9 mmol/L (3.5-5.1)
[2021-07-09 19:34] LABS: HEMATOCRIT 15.7 % (42.0-52.0); HEMOGLOBIN 5.1 gm/dL (14.0-18.0)
--- NOTE | 2021-07-09 20:10 | NUR ---
Pt received 1 unit PRBCs for Hgb 6.8. Post transfusion, Hgb 5.1, Hct 15.7. Results called to Dr. Carrington, orders received for additional blood transfusion. with pt for most of shift. Pt tachypneic, RR low to mid-30s on BIPAP. On NRB for meds with sips H2O, but no po intake otherwise. Pt c/o dry mouth R/T continuous BIPAP. Pt and discussed whether he wanted to continue with BIPAP and Full Code status; ultimately decided to continue with present course, though pt voiced discouragement. Dr. Mora ordered alprazolam for patient. Pt reports feelilng better following dose of alprazolam, and has been sleeping some late in shift. VSS. No signs of bleeding. Will continue to monitor.
[2021-07-10] VITALS (7 sets, daily range): BP systolic 99–136; BP diastolic 50–83
[2021-07-10 06:57] LABS: ABSOLUTE BASOPHILS 0.1 thou/uL (0.0-0.2); ABSOLUTE MONOCYTES 0.9 thou/uL (0.0-1.2); ABSOLUTE NEUTROPHILS 16.6 thou/uL (1.6-8.1); BASOPHILS 0.7 %; HEMATOCRIT 34.3 % (42.0-52.0); HEMOGLOBIN 11.1 gm/dL (14.0-18.0); LYMPHOCYTES 5.5 %; MCH 29.8 pg (26.0-34.0); MCHC 32.5 g/dL (28.0-37.0); MCV 91.6 fL (80.0-100.0); MONOCYTES 4.9 %; MPV 9.1 fl. (7.2-11.1); NUCLEATED RBCS 0 /100WBC; PLATELET COUNT* 282 thou/uL (150-400); POLYS 88.9 %; RBC 3.74 mil/uL (4.50-6.00); RDW-CV 16.3 % (10.5-14.5); WBC 18.7 thou/uL (4.0-11.0)
[2021-07-10 07:05] LABS: CALCIUM 7.2 mg/dL (8.5-10.1); CREATININE 2.5 mg/dL (0.6-1.3); POTASSIUM 4.1 mmol/L (3.5-5.1)
[2021-07-10 07:08] LABS: INR 1.5; PROTIME 15.8 Seconds (9.20-11.50)
--- NOTE | 2021-07-10 07:20 | NUR ---
CHANGE OF SHIFT REPORT GIVEN PATIENT SEEN AT BEDSIDE, IN BED ASLEEP ASSUMED PATIENT CARE
--- NOTE | 2021-07-10 08:14 | NUR ---
ASSUMED CARE OF PT AFTER REPORT AT 1930. PT A&OX4. VSS. PHYSICAL ASSESSMENT COMPLETED AND CHARTED. PT ON BIPAP 50%/NRB 15L. PT TRACING SR/SB ON TELE. PT WITH MCLAUGHLIN TO DEPENDENT DRAIN. TRANSFUSED 2 UNITS OF BLOOD ORDERED. PT COMPLAINED OF HEADACHE & RIGHT HIP PAIN-MED GIVEN PER MAR. UPDATED & SON REGARDING PT CONDITION. CALL LIGHT WITHIN REACH.
--- NOTE | 2021-07-10 10:44 | NUR ---
WOUND NURSE: CHECKED PATIENT'S DRESSING AND REMAINS INTACT AND FUNCTIONING PROPERLY WHILE ATTACHED TO WOUND VAC ULTA SET TO PROVENA.
[2021-07-10 15:02] LABS: HEMATOCRIT 34.5 % (42.0-52.0); HEMOGLOBIN 11.5 gm/dL (14.0-18.0); MCH 30.6 pg (26.0-34.0); MCHC 33.2 g/dL (28.0-37.0); MCV 92.1 fL (80.0-100.0); MPV 9.2 fl. (7.2-11.1); NUCLEATED RBCS 0 /100WBC; PLATELET COUNT* 279 thou/uL (150-400); RBC 3.75 mil/uL (4.50-6.00); RDW-CV 16.4 % (10.5-14.5); WBC 22.5 thou/uL (4.0-11.0)
[2021-07-10 15:35] LABS: ALBUMIN 2.9 g/dL (3.4-5.0); CALCIUM 7.1 mg/dL (8.5-10.1); CREATININE 2.4 mg/dL (0.6-1.3); DIRECT BILIRUBIN 0.6 mg/dL (<0.1-0.3); MAGNESIUM 2.2 mg/dL (1.8-2.4); POTASSIUM 3.8 mmol/L (3.5-5.1); TOTAL BILIRUBIN 1.9 mg/dL (<0.1-1.0); TOTAL PROTEIN 6.3 g/dL (6.4-8.2)
[2021-07-10 15:51] LABS: ABSOLUTE LYMPHOCYTES 1.6 thou/uL (0.8-5.3); ABSOLUTE NEUTROPHILS 18.9 thou/uL (1.6-8.1); MYELOCYTES 1 %; PLATELET ESTIMATE ADEQUATE
[2021-07-10 15:52] LABS: LARGE PLATELETS FEW; MACROCYTES 1+; POLYCHROMASIA Occasional
--- NOTE | 2021-07-10 16:59 | NUR ---
Pt remains on bipap 50% fio2. ARU following
[2021-07-10 18:01] LABS: INR 2.2
[2021-07-10 18:02] LABS: APTT 29.5 Seconds (25.0-31.3)
[2021-07-11 00:24] VITALS: BP 118/46
[2021-07-11 01:41] VITALS: BP 122/64
[2021-07-11 05:12] VITALS: BP 133/64
[2021-07-11 06:09] LABS: ABSOLUTE MONOCYTES 1.2 thou/uL (0.0-1.2); ABSOLUTE NEUTROPHILS 16.6 thou/uL (1.6-8.1); BASOPHILS 0.1 %; HEMOGLOBIN 10.8 gm/dL (14.0-18.0); LYMPHOCYTES 5.2 %; MCH 29.9 pg (26.0-34.0); MCHC 32.6 g/dL (28.0-37.0); MCV 91.7 fL (80.0-100.0); MONOCYTES 6.4 %; MPV 8.8 fl. (7.2-11.1); NUCLEATED RBCS 0 /100WBC; PLATELET COUNT* 221 thou/uL (150-400); POLYS 88.3 %; RDW-CV 16.4 % (10.5-14.5); WBC 18.8 thou/uL (4.0-11.0)
[2021-07-11 06:35] LABS: ALBUMIN 3.2 g/dL (3.4-5.0); CALCIUM 7.1 mg/dL (8.5-10.1); CREATININE 2.2 mg/dL (0.6-1.3); MAGNESIUM 2.3 mg/dL (1.8-2.4); PHOSPHORUS* 5.1 mg/dL (2.5-4.9); POTASSIUM 4.2 mmol/L (3.5-5.1); TOTAL BILIRUBIN 1.9 mg/dL (<0.1-1.0); TOTAL PROTEIN 6.1 g/dL (6.4-8.2)
--- NOTE | 2021-07-11 06:52 | NUR ---
PT IS ABLE TO COMMUNICATE HIS NEEDS TO STAFF WITH MINOR DIFFICULTY; HE BECOMES VERY SOA WHEN TALKING OR EXERTING HIMSELF. CURRENT PAIN MEDICATION REGIMEN HAS BEEN ADEQUATE FOR CONTROLLING HIS PAIN UP TO THIS TIME. RT HIP WOUND VAC HAS BEEN PATENT UP TO THIS TIME. MCLAUGHLIN HAS ALSO BEEN PATENT UP TO THIS TIME.
[2021-07-11 09:00] VITALS: BP 123/76
[2021-07-11 11:50] LABS: PROTIME 35.8 Seconds (9.20-11.50)
[2021-07-11 11:52] LABS: INR 3.6
[2021-07-11 12:00] VITALS: BP 131/67
[2021-07-11 15:12] LABS: CALCIUM 7.6 mg/dL (8.5-10.1); CREATININE 2.4 mg/dL (0.6-1.3); MAGNESIUM 2.3 mg/dL (1.8-2.4); POTASSIUM 4.2 mmol/L (3.5-5.1)
--- NOTE | 2021-07-11 15:33 | NUR ---
WOUND NURSE: DRESSING REMAINS STABLE AND INTACT. WILL CONTINUE SAME POT.
--- NOTE | 2021-07-11 15:56 | NUR ---
On 50L HF. spoke with Pt and , therapies to continue to work with Pt. ?palliative if Pt continues to not progress
[2021-07-11 17:41] LABS: INFLUENZA A ANTIGEN Negative (Negative); INFLUENZA B ANTIGEN Negative (Negative)
[2021-07-11 20:39] VITALS: BP 143/73
[2021-07-12 00:30] VITALS: BP 130/65
[2021-07-12 04:17] VITALS: BP 140/70
[2021-07-12 06:45] LABS: ABSOLUTE LYMPHOCYTES 0.7 thou/uL (0.8-5.3); ABSOLUTE MONOCYTES 0.9 thou/uL (0.0-1.2); ABSOLUTE NEUTROPHILS 19.6 thou/uL (1.6-8.1); BASOPHILS 0.1 %; HEMATOCRIT 35.4 % (42.0-52.0); HEMOGLOBIN 11.7 gm/dL (14.0-18.0); LYMPHOCYTES 3.5 %; MCH 30.2 pg (26.0-34.0); MCV 91.4 fL (80.0-100.0); MONOCYTES 4.3 %; MPV 8.6 fl. (7.2-11.1); NUCLEATED RBCS 0 /100WBC; PLATELET COUNT* 201 thou/uL (150-400); POLYS 92.1 %; RBC 3.87 mil/uL (4.50-6.00); RDW-CV 16.5 % (10.5-14.5); WBC 21.3 thou/uL (4.0-11.0)
[2021-07-12 06:55] LABS: INR 3.2; PROTIME 31.6 Seconds (9.20-11.50)
[2021-07-12 07:03] LABS: ALBUMIN 3.2 g/dL (3.4-5.0); CALCIUM 7.6 mg/dL (8.5-10.1); CREATININE 2.3 mg/dL (0.6-1.3); MAGNESIUM 2.5 mg/dL (1.8-2.4); POTASSIUM 4.8 mmol/L (3.5-5.1); TOTAL BILIRUBIN 1.9 mg/dL (<0.1-1.0); TOTAL PROTEIN 6.4 g/dL (6.4-8.2)
--- NOTE | 2021-07-12 07:51 | NUR ---
PT IS ABLE TO COMMUNICATE HIS NEEDS TO STAFF WITH MINOR DIFFICULTY; HE HAS DIFFICULTY TALKING WITHOUT GETTING SOA AND CAN BE CONFUSED AT TIMES. CURRENT PAIN MEDICATION REGIMEN HAS BEEN ADEQUATE FOR CONTROLLING HIS PAIN UP TO 0700 THIS MORNING. PT DID WEAR HIS BIPAP OVERNIGHT WHILE SLEEPING; HAS SWITCHED TO HHF ALREADY THIS MORNING.
[2021-07-12 08:00] VITALS: BP 122/70
[2021-07-12 12:00] VITALS: BP 108/62
--- NOTE | 2021-07-12 12:34 | NUR ---
PT ON COVID PRECAUTIONS AND PENDING COVID TEST RESULTS. ST CONSULTED WITH NURSING, WHO REPORTED PT IS ABLE TO TOLERATE SOLIDS/LIQUIDS, BUT HAS SHOWN DECREASED APPETITE AND INTAKE DUE TO WEAKNESS. ST AND NURSING DISCUSSED SAFE SWALLOW STRATEGIES FOR PILLS AND LIQUIDS.
[2021-07-12 16:00] VITALS: BP 115/59
[2021-07-12 20:59] VITALS: BP 137/56
[2021-07-13] VITALS: BP 130/80
[2021-07-13 04:00] VITALS: BP 127/62
[2021-07-13 06:34] LABS: CALCIUM 8.1 mg/dL (8.5-10.1); CREATININE 2.4 mg/dL (0.6-1.3); POTASSIUM 4.7 mmol/L (3.5-5.1)
[2021-07-13 06:35] LABS: INR 2.9; PROTIME 28.8 Seconds (9.20-11.50)
--- NOTE | 2021-07-13 07:41 | NUR ---
PT IS ABLE TO COMMUNICATE HIS NEEDS TO STAFF WITH MINOR DIFFICULTY; HE GETS SOA WHEN TALKING AND CAN BE DIFFICULT TO UNDERSTAND AT TIMES. HE HAS DENIED THE NEED FOR PAIN MEDICATION UP TO 0700 THIS MORNING. HE HAS BEEN WEARING THE BIPAP FOR A FEW HOURS WHILE SLEEPING. MCLAUGHLIN AND WOUND VAC HAVE BEEN PATENT UP TO 0700 TODAY. PT DOES REFUSE TURNS AT TIMES.
[2021-07-13 08:04] VITALS: BP 131/55
[2021-07-13 12:00] VITALS: BP 135/55
[2021-07-13 14:48] LABS: ABSOLUTE BASOPHILS 0.1 thou/uL (0.0-0.2); ABSOLUTE LYMPHOCYTES 0.4 thou/uL (0.8-5.3); ABSOLUTE MONOCYTES 0.9 thou/uL (0.0-1.2); ABSOLUTE NEUTROPHILS 25.2 thou/uL (1.6-8.1); BASOPHILS 0.5 %; HEMATOCRIT 40.4 % (42.0-52.0); HEMOGLOBIN 12.9 gm/dL (14.0-18.0); LYMPHOCYTES 1.4 %; MCH 29.5 pg (26.0-34.0); MCV 92.2 fL (80.0-100.0); MONOCYTES 3.3 %; MPV 8.6 fl. (7.2-11.1); NUCLEATED RBCS 0 /100WBC; PLATELET COUNT* 217 thou/uL (150-400); POLYS 94.8 %; RBC 4.38 mil/uL (4.50-6.00); RDW-CV 16.4 % (10.5-14.5); WBC 26.6 thou/uL (4.0-11.0)
[2021-07-13 15:02] LABS: ALBUMIN 3.3 g/dL (3.4-5.0); CREATININE 2.6 mg/dL (0.6-1.3); POTASSIUM 4.6 mmol/L (3.5-5.1); TOTAL BILIRUBIN 2.2 mg/dL (<0.1-1.0); TOTAL PROTEIN 6.8 g/dL (6.4-8.2)
--- NOTE | 2021-07-13 18:15 | NUR ---
PATIENT HAS REMAINED A&OX4, PLEASANT AND COOPERATIVE WITH CARES THIS SHIFT. PATIENT AND INFORMED THIS NURSE THAT PATIENT NOW WISHES TO BE A NO CODE. CONTACTED DR. TRACEY AND ORDER IS NOW PLACED FOR NO CODE. DISCUSSED COMFORT CARE WITH DR. TRACEY OVER THE PHONE AND THOSE ORDER ARE ALSO NOW IN PLACE. PATIENT THEN VOICED THAT HE WANTS TO GO BE AT HOME ON HOSPICE. ONCE MORE, THIS NURSE PAGED DR. TRACEY TO INFORM HIM. SPOKE WITH CHARTERED WEALTH MANAGER AND WAS ADVISED TO ASK PATIENT/FAMILY WHICH HOSPICE AGENCY THEY PREFER AND THEY ARE UNSURE. PROVIDED PAMPHLETS FOR DIFFERENT HOSPICE AGENCIES TO PATIENT/FAMILY. ALSO, INFORMED PATIENT/FAMILY THAT SINCE PATIENT WANTS TO GO HOME, HEATED HIGH FLOW NASAL CANNULA OR BIPAP WILL NEED TO REMAIN ON PATIENT UNTIL ARRANGEMENTS ARE MADE FOR HIM TO TRAVEL HOME. PATIENT AND FAMILY VOICE UNDERSTANDING HOWEVER PATIENT DOES SAY HE DOES NOT WANT TO WEAR BIPAP. AND SON CURRENTLY WITH PATIENT. CALL LIGHT AND FREQUENTLY USED ITEMS WITHIN REACH.
[2021-07-13 19:49] VITALS: BP 118/66
[2021-07-14] VITALS: BP 124/55
[2021-07-14 04:17] VITALS: BP 100/49
[2021-07-14 04:55] LABS: HEMATOCRIT 39.6 % (42.0-52.0); HEMOGLOBIN 12.9 gm/dL (14.0-18.0); MCH 29.9 pg (26.0-34.0); MCHC 32.5 g/dL (28.0-37.0); NUCLEATED RBCS 0 /100WBC; PLATELET COUNT* 216 thou/uL (150-400); RBC 4.31 mil/uL (4.50-6.00); RDW-CV 16.7 % (10.5-14.5); WBC 25.1 thou/uL (4.0-11.0)
--- NOTE | 2021-07-14 05:18 | NUR ---
PT IS ABLE TO COMMUNICATE HIS NEEDS TO STAFF WITH SOME DIFFICULTY; HE IS DROWSY AND HAS TROUBLE TALKING WITHOUT GETTING WINDED; FAMILY WITH PT OVERNIGHT. CURRENTLY HAS COMFORT CARE ORDERS. CURRENT PAIN MEDICATION REGIMEN HAS BEEN ADEQUATE FOR CONTROLLING HIS PAIN UP TO THIS TIME. POSSIBLE DISCHARGE TO HOSPICE SOON.
[2021-07-14 05:24] LABS: ALBUMIN 3.2 g/dL (3.4-5.0); CALCIUM 7.8 mg/dL (8.5-10.1); CREATININE 2.5 mg/dL (0.6-1.3); POTASSIUM 4.3 mmol/L (3.5-5.1); TOTAL BILIRUBIN 2.1 mg/dL (<0.1-1.0); TOTAL PROTEIN 6.4 g/dL (6.4-8.2)
[2021-07-14 05:39] LABS: ABSOLUTE EOSINOPHILS 0.3 thou/uL (0.0-0.7); ABSOLUTE LYMPHOCYTES 2.3 thou/uL (0.8-5.3); ABSOLUTE NEUTROPHILS 21.6 thou/uL (1.6-8.1); PLATELET ESTIMATE ADEQUATE; TOXIC GRANULATION 1+
[2021-07-14 09:57] VITALS: BP 118/69
[2021-07-14 16:37] VITALS: BP 118/69
--- NOTE | 2021-07-14 18:20 | NUR ---
PT DC TO HOME ON HOSPICE AT 1814 BY AMBULANCE. HOSPICE NOTIFIED. BELONGINGS SENT WITH FAMILY. IJ OUT UPON DC. WOUND VAC REMOVED AND DRESSING PLACED ON RIGHT HIP. MCLAUGHLIN IN PLACE.
[2021-07-14 21:05] LABS: MYCOPLASMA PNEUMONIA IgG 271 U/mL (0-99); MYCOPLASMA PNEUMONIA IgM <770 U/mL (0-769)
== END 2021-07-14 18:25 | disposition hospice, home (50) | DRG 521 ==
LOC: M.ERS 10:36 → M.2W 13:00 → M.TBA-ER 13:00 → M.2W 17:40 → M.ICU 07-01 11:10 → M.TBA-ER 07-03 13:39 → M.2W 07-03 20:36
PROVIDERS: Emergency Medicine Emergency Medical Services; Internal Medicine; Internal Medicine Cardiovascular Disease; Internal Medicine Critical Care Medicine; Internal Medicine Nephrology; ADMIT Internal Medicine; ATTEND Internal Medicine
PROC: 0SRR019 Replacement of Right Hip Joint, Femoral Surface with Metal Synthetic Substitute, Cemented, Open Approach (ICD-10-PCS; principal; 2021-06-29)
PROC: 0BH17EZ Insertion of Endotracheal Airway into Trachea, Via Natural or Artificial Opening (ICD-10-PCS; 2021-07-01)
PROC: 30233N1 Transfusion of Nonautologous Red Blood Cells into Peripheral Vein, Percutaneous Approach (ICD-10-PCS; 2021-07-01)
PROC: 5A1935Z Respiratory Ventilation, Less than 24 Consecutive Hours (ICD-10-PCS; 2021-07-01)
PROC: 5A0945A Assistance with Respiratory Ventilation, 24-96 Consecutive Hours, High Flow/Velocity Cannula (ICD-10-PCS; 2021-07-02)
PROC: 5A0935A Assistance with Respiratory Ventilation, Less than 24 Consecutive Hours, High Flow/Velocity Cannula (ICD-10-PCS; 2021-07-04)
PROC: 5A0935A Assistance with Respiratory Ventilation, Less than 24 Consecutive Hours, High Flow/Velocity Cannula (ICD-10-PCS; 2021-07-05)
PROC: 5A09357 Assistance with Respiratory Ventilation, Less than 24 Consecutive Hours, Continuous Positive Airway Pressure (ICD-10-PCS; 2021-07-06)
PROC: 5A0935A Assistance with Respiratory Ventilation, Less than 24 Consecutive Hours, High Flow/Velocity Cannula (ICD-10-PCS; 2021-07-06)
PROC: 5A0935A Assistance with Respiratory Ventilation, Less than 24 Consecutive Hours, High Flow/Velocity Cannula (ICD-10-PCS; 2021-07-07)
PROC: 5A09357 Assistance with Respiratory Ventilation, Less than 24 Consecutive Hours, Continuous Positive Airway Pressure (ICD-10-PCS; 2021-07-07)
PROC: 5A09357 Assistance with Respiratory Ventilation, Less than 24 Consecutive Hours, Continuous Positive Airway Pressure (ICD-10-PCS; 2021-07-08)
PROC: 5A0935A Assistance with Respiratory Ventilation, Less than 24 Consecutive Hours, High Flow/Velocity Cannula (ICD-10-PCS; 2021-07-08)
PROC: 5A09357 Assistance with Respiratory Ventilation, Less than 24 Consecutive Hours, Continuous Positive Airway Pressure (ICD-10-PCS; 2021-07-09)
PROC: 5A09357 Assistance with Respiratory Ventilation, Less than 24 Consecutive Hours, Continuous Positive Airway Pressure (ICD-10-PCS; 2021-07-10)
PROC: 5A0935A Assistance with Respiratory Ventilation, Less than 24 Consecutive Hours, High Flow/Velocity Cannula (ICD-10-PCS; 2021-07-10)
PROC: 5A09357 Assistance with Respiratory Ventilation, Less than 24 Consecutive Hours, Continuous Positive Airway Pressure (ICD-10-PCS; 2021-07-11)
PROC: 5A0935A Assistance with Respiratory Ventilation, Less than 24 Consecutive Hours, High Flow/Velocity Cannula (ICD-10-PCS; 2021-07-11)
PROC: 5A09357 Assistance with Respiratory Ventilation, Less than 24 Consecutive Hours, Continuous Positive Airway Pressure (ICD-10-PCS; 2021-07-12)
PROC: 5A0935A Assistance with Respiratory Ventilation, Less than 24 Consecutive Hours, High Flow/Velocity Cannula (ICD-10-PCS; 2021-07-12)
PROC: 5A0935A Assistance with Respiratory Ventilation, Less than 24 Consecutive Hours, High Flow/Velocity Cannula (ICD-10-PCS; 2021-07-13)
PROC: 5A09357 Assistance with Respiratory Ventilation, Less than 24 Consecutive Hours, Continuous Positive Airway Pressure (ICD-10-PCS; 2021-07-13)
PROC: 06H03DZ Insertion of Intraluminal Device into Inferior Vena Cava, Percutaneous Approach (ICD-10-PCS; 2021-07-13)
PROC: 5A0935A Assistance with Respiratory Ventilation, Less than 24 Consecutive Hours, High Flow/Velocity Cannula (ICD-10-PCS; 2021-07-14)
DX: M80.051A Age-related osteoporosis with current pathological fracture, right femur, initial encounter for fracture (principal); A41.9 Sepsis, unspecified organism; N17.0 Acute kidney failure with tubular necrosis; R57.8 Other shock; I50.33 Acute on chronic diastolic (congestive) heart failure; J69.0 Pneumonitis due to inhalation of food and vomit; J96.01 Acute respiratory failure with hypoxia; I46.9 Cardiac arrest, cause unspecified; D68.69 Other thrombophilia; D62 Acute posthemorrhagic anemia; D84.9 Immunodeficiency, unspecified; E87.2 Acidosis; M62.82 Rhabdomyolysis; I13.0 Hypertensive heart and chronic kidney disease with heart failure and stage 1 through stage 4 chronic kidney disease, or unspecified chronic kidney disease; Z96.642 Presence of left artificial hip joint; N40.0 Benign prostatic hyperplasia without lower urinary tract symptoms; M06.9 Rheumatoid arthritis, unspecified; Z96.652 Presence of left artificial knee joint; E78.5 Hyperlipidemia, unspecified; N18.9 Chronic kidney disease, unspecified; M19.90 Unspecified osteoarthritis, unspecified site; Z51.5 Encounter for palliative care; I95.9 Hypotension, unspecified; E83.51 Hypocalcemia; D69.6 Thrombocytopenia, unspecified; E11.22 Type 2 diabetes mellitus with diabetic chronic kidney disease; Z66 Do not resuscitate; Z88.6 Allergy status to analgesic agent; Z86.718 Personal history of other venous thrombosis and embolism; Z87.891 Personal history of nicotine dependence; Z88.1 Allergy status to other antibiotic agents; Z88.2 Allergy status to sulfonamides; Z88.8 Allergy status to other drugs, medicaments and biological substances; Z86.711 Personal history of pulmonary embolism; Z20.822 Contact with and (suspected) exposure to COVID-19